=== PATIENT | female | born 1985 | race Caucasian/White ===

== ENCOUNTER 2017-11-03 20:05 | Outpatient (CLI) | payer MEDICARE, SELFPAY ==
[2017-11-03 20:37] VITALS: BMI 51.9
--- NOTE | 2017-11-04 09:15 | OB.TRI.NOTE ---
History of Present Illness Reason For Visit: pelvic pain in Gestational age: 25 Home Medications Medication Instructions Recorded Egeugnvi27/Iron Fum/FA/Om3/Dha 1 tablet PO DAILY 07/01/17 Budesonide/Formoterol Fumarate 6 gm IH PRN PRN 09/09/17 [Symbicort 160-4.5 Mcg Inhaler] Tamiflu 1 tab PO DAILY 11/03/17 Allergies No Known Allergies Allergy (Verified 10/10/17 20:45) NST - FHR Rate Baby A Baseline: 150 Impression/Plan Pelvic pain in
== END 2017-11-03 21:10 | disposition home or self-care (01) ==
LOC: WPOUT 20:32 → WP 20:34
PROVIDERS: Visit Provider Obstetrics & Gynecology
DX: O26.892 Other specified pregnancy related conditions, second trimester (principal); R10.2 Pelvic and perineal pain; Z3A.25 25 weeks gestation of pregnancy
CPT/HCPCS: 59050; 99218; G0378

== ENCOUNTER 2017-11-17 11:52 | Emergency (ER) | payer MEDICARE, SELFPAY ==
[2017-11-17 11:53] VITALS: BP 133/74; PULSE 114; RESP 16; TEMP 36.4; O2SAT 98; BMI 51.3
--- NOTE | 2017-11-17 12:12 | ED.VISSUMM ---
- ER Visit Summary Date of Service: 11/17/17 Chief Complaint: Cough and nausea History of Present Illness: The patient is a 32 F approximately 26 weeks due on February 16. Patient is Ab2. States for 2 weeks she has had a cough and intermittent nausea. Initially was treated with Tamiflu for influenza and Zofran for nausea. Currently is on Zofran and amoxicillin treated by an urgent care physician. She states she still has a cough. Denies any hemoptysis. Denies any chest pain. Denies any shortness of breath. Physical Examination: Well-appearing young female. Vital signs are stable. She is afebrile. Her pulse ox is 90% on room air no signs of hypoxia. No distress. HEENT exam unremarkable. Moist mucous membranes. No trouble swallowing or breathing. No stridor or drooling. Neck she has tender lymph nodes on the right side of her neck. Trachea midline. Lungs clear to auscultation bilaterally. No rales rhonchi or wheezing. Very mild cough. Heart regular rhythm no murmur. Rate about 100. Abdomen is morbidly obese but soft. No peritoneal signs. Normal bowel sounds. She is moving all 4 extremities. Calves are nontender. There is no edema or cords. Neurologically she is awake and alert with no focal deficits. Back exam is nontender. Test Results: None Emergency Department Course and Treatment: Discharge home treat as a viral syndrome. Treated symptomatically with Zofran for nausea. Follow-up with her HAIR STYLIST as needed. Treatment Plan: She does not need a testing at this time. Disposition: Discharge Impression: Acute viral syndrome with cough. Nausea at 26 weeks. This note was generated with [employer] dictation software. It may contain incorrect words, spelling, and punctuation that were not noted in review of the chart prior to signing ED Disposition - Plan for ED Patient: Chief Complaint: Cough Referrals: Care Physician,No Primary [Primary Care Provider] -
--- NOTE | 2017-11-17 12:16 | ED.DCSUM_ITS ---
- ER Visit Summary Date of Service: 11/17/17 Chief Complaint: Cough and nausea History of Present Illness: The patient is a 32 F approximately 26 weeks due on February 16. Patient is Ab2. States for 2 weeks she has had a cough and intermittent nausea. Initially was treated with Tamiflu for influenza and Zofran for nausea. Currently is on Zofran and amoxicillin treated by an urgent care physician. She states she still has a cough. Denies any hemoptysis. Denies any chest pain. Denies any shortness of breath. Physical Examination: Well-appearing young female. Vital signs are stable. She is afebrile. Her pulse ox is 90% on room air no signs of hypoxia. No distress. HEENT exam unremarkable. Moist mucous membranes. No trouble swallowing or breathing. No stridor or drooling. Neck she has tender lymph nodes on the right side of her neck. Trachea midline. Lungs clear to auscultation bilaterally. No rales rhonchi or wheezing. Very mild cough. Heart regular rhythm no murmur. Rate about 100. Abdomen is morbidly obese but soft. No peritoneal signs. Normal bowel sounds. She is moving all 4 extremities. Calves are nontender. There is no edema or cords. Neurologically she is awake and alert with no focal deficits. Back exam is nontender. Test Results: None Emergency Department Course and Treatment: Discharge home treat as a viral syndrome. Treated symptomatically with Zofran for nausea. Follow-up with her CREATIVE SERVICES INTERN as needed. Treatment Plan: She does not need a testing at this time. Disposition: Discharge Impression: Acute viral syndrome with cough. Nausea at 26 weeks. This note was generated with [employer] dictation software. It may contain incorrect words, spelling, and punctuation that were not noted in review of the chart prior to signing ED Disposition - Plan for ED Patient: Chief Complaint: Cough Referrals: Care Physician,No Primary [Primary Care Provider] -
--- NOTE | 2017-11-17 12:17 | DCINST.ED_ITS ---
ED Disposition - Plan for ED Patient: Disposition: Home or Assisted Living Chief Complaint: Cough Instructions: ED URI Viral Referrals: Ivory Pimentel [STAFF PHYSICIAN] - As Needed Additional Instructions: Fluids and rest. Finish her current antibiotic prescription even though this is most likely a virus. Zofran as needed for nausea. Follow-up with your PATIENT ACCOUNTS SPECIALIST as needed.
== END 2017-11-17 13:08 | disposition home or self-care (01) ==
PROVIDERS: Emergency Provider Emergency Medicine
DX: O98.512 Other viral diseases complicating pregnancy, second trimester (principal); J06.9 Acute upper respiratory infection, unspecified; R11.0 Nausea; Z3A.26 26 weeks gestation of pregnancy
CPT/HCPCS: 99282

== ENCOUNTER 2017-12-06 14:20 | Outpatient (CLI) | payer MEDICARE, SELFPAY ==
[2017-12-06 14:34] VITALS: BMI 51.2
[2017-12-06] MEDS: Lactated Ringers 500 ML 999 ML IV (15:00)
--- NOTE | 2017-12-06 15:05 | VDLE_ITS ---
Reason For Study: LEG SWELLING Procedure LEFT Exam performed portable in patient room. GSV is normal. A preliminary report was called and/or faxed CFV is compressible, spontaneous, phasic, to WP. competent, and demonstrates normal augmentation. FV is compressible, spontaneous, phasic, competent and demonstrates normal augmentation. POP V is compressible, spontaneous, phasic, competent and demonstrates normal augmentation. T/P Trunk is compressible. PTV is compressible. LT PerV is compressible. Interpretation Summary Deep veins of the left lower extremity are patent and compressible segmentally. There is no evidence of left lower extremity deep vein thrombosis. Valvular competence appears intact within the proximal deep venous system on the left . The left greater saphenous vein appears patent and compressible segmentally. Ordering Physician: Carisa Hayden Referring Physician: Carisa Hayden Performed By: Pilar Alvares RVT
[2017-12-06] MEDS: Ondansetron 4 MG/2 ML Vial IV (15:45)
[2017-12-06 15:48] LABS: Bacteria 0 SEEN /hpf (None Seen); Mucous, Urine 0 SEEN /hpf (<or=2+); White Blood Cells 0 SEEN /hpf (0-5)
[2017-12-06 16:00] LABS: Color, Urine Yellow (Yellow); Glucose, Dipstick Normal (Normal); Hematocrit 36.5 % (37-47); Hemoglobin 12.3 g/dl (12.0-15.0); Ketone-Dipstick 15 mg/dl (Negative); Leukocyte Esterase-Dipstick 25 /ul (Negative); Mean Corp Hgb Conc 33.7 g/gl (32-36); Mean Corpuscular Hgb 28.1 pg (27.0-32.0); Mean Corpuscular Volume 83.5 fL (81-99); Mean Platelet Vol. 10.3 fl (6.2-12.0); Nitrite-Dipstick Positive (Negative); Occult Blood-Urine 10 /ul (Negative); Platelet Count 291 K/mm3 (150-450); Protein-Dipstick 30 mg/dl (Negative); RBC Distribution Width CV 14.3 % (11.6-14.6); RBC Distribution Width SD 43.5 fl (35.1-43.9); Red Blood Count 4.37 M/mm3 (4.2-5.4); Specific Gravity, Urine 1.025 (1.002-1.030); Urine Bilirubin Dipstick Negative (Negative); Urine Clarity Sl. Cloudy (Clear); Urine Urobilinogen Normal (Normal); White Blood Count 8.9 K/mm3 (4.4-11.0)
[2017-12-06 16:16] LABS: ALB/GLOB Ratio 0.5 RATIO (0.9-2.4); AST(SGOT) 19 U/L (15-37); Alanine Aminotransfer ALT/SGPT 14 U/L (13-56); Albumin, Serum 2.5 g/dL (3.2-5.0); Alkaline Phosphatase 104 U/L (45-117); Amylase 105 U/L (25-115); Anion Gap 10 (5-15); BUN 9 mg/dL (7-18); BUN/Creat Ratio 16.6 RATIO (10-20); Calcium,Total 9.1 mg/dL (8.5-10.1); Chloride 108 mmol/L (98-107); Creatinine, Serum 0.54 mg/dL (0.55-1.02); EST Glomerular Filtration Rate 138 mL/min (>60); Est Glom Filt Rate - Afr Amer 167 mL/min (>60); Estimated Creatinine Clearance 123.72 ml/min; Globulin 4.6 g/dL (2.2-4.2); Glucose 88 mg/dL (74-106); Lipase 87 U/L (73-393); Potassium 3.8 mmol/L (3.5-5.1); Protein, Total 7.1 g/dL (6.4-8.2); Scan Indicated on CBC? Y/N NO; Sodium Level 141 mmol/L (136-145)
[2017-12-06 16:19] LABS: Squamous Epithelial Cells - UA 10-25 SEEN /hpf (5-10)
[2017-12-06 16:20] LABS: Red Blood Cells-Urine 0-5 SEEN /hpf (0-5)
[2017-12-06 16:25] LABS: Fibrinogen 586 mg/dl (203-444); Partial Thromboplast Time 29.2 Seconds (24.1-36.2); Prothrombin Time (Protime)PT. 13.5 SECONDS (11.7-14.9)
[2017-12-06 16:26] LABS: Protein, Urine (Random) 23.2 mg/dL (<11.9); Protein:Creat Ratio 80 mg/g CRE (0-200)
--- NOTE | 2017-12-06 18:00 | OB.TRI.NOTE ---
History of Present Illness Date of Service: 12/06/17 Was patient seen by the physician?: Yes Reason For Visit: ABD PAIN Date of Service: 12/06/17 Final BETY: 02/16/18 Final BETY Source: US <20 weeks Gestational age: 29 Weeks and 5 Days History of Present Illness: 32-year-old Flor[place]ma 6 para 2031 with EDC of 02/16/2018 presents at 29+ gestational weeks complaining of acute onset abdominal pain. She states it started about roughly after lunch. She got nauseous, sweaty, and just had sharp pain across her lower back and wrapping around the right lower quadrant of her abdomen. She denies any vaginal bleeding or leaking of fluid. She has had good movement. She denies any fevers or chills. 2 episodes of diarrhea earlier today. She had 1 large emesis in our office before she was sent over here. View of systems: General, denies any fevers, chills, or fatigue. Respiratory: She denies any shortness of breath, cough Cardiac: She denies any chest pain or palpitations : She denies any abnormal vaginal discharge, itching or burning. She denies any dysuria or hematuria Home Medications Medication Instructions Recorded Zmjhzjlb16/Iron Fum/FA/Om3/Dha 1 tablet PO DAILY 07/01/17 Budesonide/Formoterol Fumarate 6 gm IH PRN PRN 09/09/17 [Symbicort 160-4.5 Mcg Inhaler] Tamiflu 1 tab PO DAILY 11/03/17 ProMETHAzine [Phenergan] 12.5 mg PO Q6H PRN PRN #10 tab 12/06/17 Allergies No Known Allergies Allergy (Verified 10/10/17 20:45) - Pertinent Past Medical History Pertinent Past Medical History: Symmetrical history is significant for 2 previous sections She is morbidly obese with BMI of 51 Has a history of gallstones, asthma and seizure disorder in childhood Sickle history significant for , ankle surgery and cholecystectomy Physical Exam General: Alert, Cooperative, No apparent distress, - - Does appear uncomfortable Cardiovascular: Regular rate Lungs: Clear to auscultation Abdomen: Soft, Non-Distended, Tender - Mildly, - - No rebound or guarding, nondistended Estimated gestational size: Large for gestational age Presentation: Unable to assess Cervix Dilation (cm): 0 Station: -3 Effacement (%): 0 NST - FHR Rate Baby A Baseline: 140 bpm Variability:: Moderate Accelerations:: 15 x 15 Decelerations:: Variable - small NST Reactive:: Appropriate for gestational age FHR Category:: Category I Uterine Activity:: quiet Impression/Plan 32-year-old 6 para 2 AB 3 female at 29+ gestational weeks with abdominal pain. He has had no further emesis since admission. She would like something to drink. She is afebrile, normal white blood cell count, and no rebound or guarding. Suspicion for appendicitis is low at this point. Urinalysis was negative for blood so suspicion of kidney stone is very low as well. No evidence of obstetrical issue. Suspect viral gastroenteritis versus food poisoning. Recommend push fluids. She was given a liter of IV fluids and some Phenergan and was feeling much better and did not require any pain medications. She is to follow-up as scheduled in the office or as needed for fever or worsening of symptoms. She is comfortable with this plan and was given a prescription for Phenergan.
== END 2017-12-06 17:10 | disposition home or self-care (01) ==
LOC: WPOUT 14:26 → WP 14:28
PROVIDERS: Visit Provider Obstetrics & Gynecology
DX: O26.93 Pregnancy related conditions, unspecified, third trimester (principal); R10.31 Right lower quadrant pain; R11.0 Nausea; M54.5 Low back pain; O36.63X0 Maternal care for excessive fetal growth, third trimester, not applicable or unspecified; O99.213 Obesity complicating pregnancy, third trimester; E66.01 Morbid (severe) obesity due to excess calories; Z68.43 Body mass index [BMI] 50.0-59.9, adult; Z3A.29 29 weeks gestation of pregnancy; M79.89 Other specified soft tissue disorders; Z79.899 Other long term (current) drug therapy
CPT/HCPCS: 96361 ×2; 96374; 59025; 59050; 80053; 81001; 82150; 82570; 83690; 84156; 85027; 85384; 85610; 85730; 86850; 86900; 93971; 99218; J7120; G0378; J2405

== ENCOUNTER 2017-12-12 11:00 | Outpatient (RCR) | payer MEDICARE, SELFPAY | END 2017-12-31 23:59 | LOC: DC 11:00 | PROVIDERS: Visit Provider Advanced Practice Midwife | DX: O24.410 Gestational diabetes mellitus in pregnancy, diet controlled (principal); Z71.3 Dietary counseling and surveillance | CPT/HCPCS: 97802; G0108 ==

== ENCOUNTER 2018-01-05 23:25 | Outpatient (CLI) | payer MEDICARE, SELFPAY ==
[2018-01-06 00:20] VITALS: BMI 51.0
[2018-01-06 00:22] LABS: Red Blood Cells-Urine 0 SEEN /hpf (0-5)
[2018-01-06 00:38] LABS: Color, Urine Yellow (Yellow); Glucose, Dipstick Normal (Normal); Ketone-Dipstick Negative (Negative); Leukocyte Esterase-Dipstick 500 /ul (Negative); Nitrite-Dipstick Negative (Negative); Occult Blood-Urine 25 /ul (Negative); Protein-Dipstick 30 mg/dl (Negative); Urine Bilirubin Dipstick Negative (Negative); Urine Clarity Turbid (Clear); Urine Urobilinogen Normal (Normal)
[2018-01-06 00:45] LABS: Bacteria 2+ /hpf (None Seen); Mucous, Urine 1+ /hpf (<or=2+); Squamous Epithelial Cells - UA 10-25 SEEN /hpf (5-10)
[2018-01-06 00:46] LABS: White Blood Cells 50-100 SEEN /hpf (0-5)
--- NOTE | 2018-01-06 09:01 | OB.TRI.NOTE ---
History of Present Illness Date of Service: 01/06/18 Was patient seen by the physician?: No Reason For Visit: R/O LABOR Date of Service: 01/06/18 Final BETY: 02/16/18 Final BETY Source: US <20 weeks Gestational age: 34 Weeks and 1 Days Home Medications Medication Instructions Recorded [id number]/Iron Fum/FA/Om3/Dha 1 tablet PO DAILY 07/01/17 Budesonide/Formoterol Fumarate 6 gm IH PRN PRN 09/09/17 [Symbicort 160-4.5 Mcg Inhaler] Humulin N 16 unit SQ DAILY 01/06/18 Novolog Flexpen 4 - 6 units SQ BID 01/06/18 Allergies No Known Allergies Allergy (Verified 01/06/18 00:20) NST - FHR Rate Baby A Baseline: 140 Variability:: Moderate Accelerations:: 15 x 15 Decelerations:: None NST Reactive:: Yes FHR Category:: Category I Uterine Activity:: irritability Impression/Plan 32 YOF multigravida high risk patient c/o abdominal pain. Urinalysis contaminated. No fever. Not in labor. NST reactive. No evidence of obstetrical issue. D/maria m home to f/u in office prn or as scheduled.
--- NOTE | 2018-01-06 09:06 | OB.TRI.HP_ITS ---
History of Present Illness Date of Service: 01/06/18 Was patient seen by the physician?: No Reason For Visit: R/O LABOR Date of Service: 01/06/18 Final BETY: 02/16/18 Final BETY Source: US <20 weeks Gestational age: 34 Weeks and 1 Days Home Medications Medication Instructions Recorded Yjpkyxra87/Iron Fum/FA/Om3/Dha 1 tablet PO DAILY 07/01/17 Budesonide/Formoterol Fumarate 6 gm IH PRN PRN 09/09/17 [Symbicort 160-4.5 Mcg Inhaler] Humulin N 16 unit SQ DAILY 01/06/18 Novolog Flexpen 4 - 6 units SQ BID 01/06/18 Allergies No Known Allergies Allergy (Verified 01/06/18 00:20) NST - FHR Rate Baby A Baseline: 140 Variability:: Moderate Accelerations:: 15 x 15 Decelerations:: None NST Reactive:: Yes FHR Category:: Category I Uterine Activity:: irritability Impression/Plan 32 YOF multigravida high risk patient c/o abdominal pain. Urinalysis contaminated. No fever. Not in labor. NST reactive. No evidence of obstetrical issue. D/maria m home to f/u in office prn or as scheduled.
== END 2018-01-06 01:55 | disposition home or self-care (01) ==
LOC: WPOUT 01-06 00:03 → WP 01-06 00:05
PROVIDERS: Visit Provider Obstetrics & Gynecology
DX: O09.93 Supervision of high risk pregnancy, unspecified, third trimester (principal); R10.9 Unspecified abdominal pain; Z3A.34 34 weeks gestation of pregnancy
CPT/HCPCS: 59025; 59050; 81001; 99218; G0378

== ENCOUNTER 2018-01-06 13:19 | Outpatient (CLI) | payer MEDICARE, SELFPAY ==
[2018-01-06 13:33] VITALS: BMI 51.0
[2018-01-06 14:56] LABS: Bedside Glucose 97 mg/dL (70-110)
[2018-01-06] MEDS: Nalbuphine 10 MG/ML Ampul SC (15:32)
--- NOTE | 2018-01-11 05:16 | OB.TRI.NOTE ---
History of Present Illness Date of Service: 01/06/18 Reason For Visit: R/O LABOR Date of Service: 01/06/18 Final BETY: 02/16/18 Gestational age: 34 Weeks and 6 Days History of Present Illness: 32 yo at 34w presents with contractions and abdominal pain. no cervical change and no vaginal bleeding. she is wanting to transfer care to my office to be seen for delivery. Home Medications Medication Instructions Recorded Vkmhmvdp71/Iron Fum/FA/Om3/Dha 1 tab PO DAILY 07/01/17 Budesonide/Formoterol Fumarate 6 gm IH PRN PRN 09/09/17 [Symbicort 160-4.5 Mcg Inhaler] Humulin N 16 unit SQ BID 01/06/18 Novolog Flexpen 4 - 6 units SQ BID 01/06/18 Allergies No Known Allergies Allergy (Verified 01/10/18 11:14) - Pertinent Past Medical History Pertinent Past Medical History: Past Medical History (Last Reviewed 01/10/18 @ 11:15 by Yajaira Ford) Asthma (Acute) Gestational diabetes (Acute) Past Surgical History (Last Updated 01/10/18 @ 11:17 by Yajaira Ford) delivery delivered (Acute) Hx of cholecystectomy (Acute) ROS: general: negative GI: see hpi Physical Exam General: Alert, Oriented x3 Cardiovascular: Regular rate Lungs: Normal air movement Abdomen: Soft, Non Tender, Gravid NST - FHR Rate Baby A Baseline: 140 Variability:: Moderate Accelerations:: 15 x 15 Decelerations:: None NST Reactive:: Yes FHR Category:: Category I Uterine Activity:: no regular Impression/Plan threatened PTL previous cs x 2 reassuring FHT no cervical dilation, nubain given and patient dc to home
== END 2018-01-06 17:17 | disposition home or self-care (01) ==
LOC: OBS 13:25 → WP 13:26
PROVIDERS: Visit Provider Obstetrics & Gynecology
DX: O47.03 False labor before 37 completed weeks of gestation, third trimester (principal); O24.414 Gestational diabetes mellitus in pregnancy, insulin controlled; O34.219 Maternal care for unspecified type scar from previous cesarean delivery; J45.909 Unspecified asthma, uncomplicated; Z90.49 Acquired absence of other specified parts of digestive tract; Z3A.34 34 weeks gestation of pregnancy
CPT/HCPCS: 59025; 59050; 82962; 96372; 99218; G0378

== ENCOUNTER 2018-01-11 17:18 | Outpatient (CLI) | payer MEDICARE, SELFPAY ==
[2018-01-11 17:25] VITALS: BMI 50.9
[2018-01-11 18:16] LABS: Hematocrit 36.2 % (37-47); Hemoglobin 11.9 g/dl (12.0-15.0); Mean Corp Hgb Conc 32.9 g/gl (32-36); Mean Corpuscular Volume 82.1 fL (81-99); Mean Platelet Vol. 9.8 fl (6.2-12.0); Platelet Count 297 K/mm3 (150-450); RBC Distribution Width CV 13.8 % (11.6-14.6); RBC Distribution Width SD 41.8 fl (35.1-43.9); Red Blood Count 4.41 M/mm3 (4.2-5.4); White Blood Count 8.8 K/mm3 (4.4-11.0)
[2018-01-11 18:17] LABS: Scan Indicated on CBC? Y/N NO
[2018-01-11 18:22] LABS: Prothrombin Time (Protime)PT. 13.1 SECONDS (11.7-14.9)
[2018-01-11 18:27] LABS: Partial Thromboplast Time 27.8 Seconds (24.1-36.2)
[2018-01-11 18:32] LABS: AST(SGOT) 10 U/L (15-37); Alanine Aminotransfer ALT/SGPT 13 U/L (13-56); Creatinine, Serum 0.43 mg/dL (0.55-1.02); EST Glomerular Filtration Rate 180 mL/min (>60); Est Glom Filt Rate - Afr Amer 217 mL/min (>60); Estimated Creatinine Clearance 155.37 ml/min
[2018-01-11 18:52] LABS: Protein, Urine (Random) 41.4 mg/dL (<11.9); Protein:Creat Ratio 209 mg/g CRE (0-200)
[2018-01-11] MEDS: Ondansetron ODT 4 MG Tablet PO (19:12)
[2018-01-11] MEDS: Acetaminophen 325 MG Tablet PO (19:12)
--- NOTE | 2018-01-12 02:41 | OB.TRI.NOTE ---
History of Present Illness Date of Service: 01/11/18 Was patient seen by the physician?: Yes Reason For Visit: [facility] Date of Service: 01/11/18 Final BETY: 02/16/18 Gestational age: 35 Weeks and 0 Days History of Present Illness: 32 yo @ 34w6d presents with signfiicant headache and lower pevlic pain. denies any vb lof admits good fm co some spots in her vision with it also. normal bps nothing elevated and took tylenol at noon today, some nausea Home Medications Medication Instructions Recorded [id number]/Iron Fum/FA/Om3/Dha 1 tab PO DAILY 07/01/17 Budesonide/Formoterol Fumarate 6 gm IH PRN PRN 09/09/17 [Symbicort 160-4.5 Mcg Inhaler] Humulin N 16 unit SQ BID 01/06/18 Novolog Flexpen 4 - 6 units SQ BID 01/06/18 Allergies No Known Allergies Allergy (Verified 01/10/18 11:14) - Pertinent Past Medical History Pertinent Past Medical History: Past Medical History (Last Reviewed 01/10/18 @ 11:15 by Yajaira Ford) Asthma (Acute) Gestational diabetes (Acute) Past Surgical History (Last Updated 01/10/18 @ 11:17 by Yajaira Ford) delivery delivered (Acute) Hx of cholecystectomy (Acute) Mom's Labs & Results 01/11/18 01/11/18 01/11/18 17:35 17:50 17:50 WBC 8.8 RBC 4.41 Hgb 11.9 L Hct 36.2 L MCV 82.1 MCH 27.0 MCHC 32.9 RDW 13.8 RDW Differential 41.8 Plt Count 297 MPV 9.8 PT 13.1 INR 1.0 APTT 27.8 Creatinine Estim Creat Clear Calc Est GFR (MDRD) Af Amer Est GFR (MDRD) Non-Af Uric Acid AST ALT U Random Total Protein 41.4 H Urine Creatinine 198.00 Protein/Creatinin Ratio 209 H 01/11/18 17:50 WBC RBC Hgb Hct MCV MCH MCHC RDW RDW Differential Plt Count MPV PT INR APTT Creatinine 0.43 L Estim Creat Clear Calc 155.37 Est GFR (MDRD) Af Amer 217 Est GFR (MDRD) Non-Af 180 Uric Acid 4.0 AST 10 L ALT 13 U Random Total Protein Urine Creatinine Protein/Creatinin Ratio Social History Smoking Status Former smoker Physical Exam General: Alert Cardiovascular: Regular rate Lungs: Normal air movement Abdomen: Soft, Gravid, Tender Estimated gestational size: Appropriate for gestational size Cervix Dilation (cm): 0 NST - FHR Rate Baby A Baseline: 135-140 Variability:: Moderate Accelerations:: 15 x 15 Decelerations:: None NST Reactive:: Yes FHR Category:: Category I Uterine Activity:: irregular Impression/Plan 32 yo @ 34w6d presents with headache and pelvic pain in , threatened PTL no cervical dilation, reassuring FHT, normal bps and normal preeclampsia panel, negative for signfiicant fproteinuria dc home
--- NOTE | 2018-01-12 02:44 | OB.TRI.HP_ITS ---
History of Present Illness Date of Service: 01/11/18 Was patient seen by the physician?: Yes Reason For Visit: [facility] Date of Service: 01/11/18 Final BETY: 02/16/18 Gestational age: 35 Weeks and 0 Days History of Present Illness: 32 yo @ 34w6d presents with signfiicant headache and lower pevlic pain. denies any vb lof admits good fm co some spots in her vision with it also. normal bps nothing elevated and took tylenol at noon today, some nausea Home Medications Medication Instructions Recorded [id number]/Iron Fum/FA/Om3/Dha 1 tab PO DAILY 07/01/17 Budesonide/Formoterol Fumarate 6 gm IH PRN PRN 09/09/17 [Symbicort 160-4.5 Mcg Inhaler] Humulin N 16 unit SQ BID 01/06/18 Novolog Flexpen 4 - 6 units SQ BID 01/06/18 Allergies No Known Allergies Allergy (Verified 01/10/18 11:14) - Pertinent Past Medical History Pertinent Past Medical History: Past Medical History (Last Reviewed 01/10/18 @ 11:15 by Yajaira Ford) Asthma (Acute) Gestational diabetes (Acute) Past Surgical History (Last Updated 01/10/18 @ 11:17 by Yajaira Ford) delivery delivered (Acute) Hx of cholecystectomy (Acute) Mom's Labs & Results 01/11/18 01/11/18 01/11/18 17:35 17:50 17:50 WBC 8.8 RBC 4.41 Hgb 11.9 L Hct 36.2 L MCV 82.1 MCH 27.0 MCHC 32.9 RDW 13.8 RDW Differential 41.8 Plt Count 297 MPV 9.8 PT 13.1 INR 1.0 APTT 27.8 Creatinine Estim Creat Clear Calc Est GFR (MDRD) Af Amer Est GFR (MDRD) Non-Af Uric Acid AST ALT U Random Total Protein 41.4 H Urine Creatinine 198.00 Protein/Creatinin Ratio 209 H 01/11/18 17:50 WBC RBC Hgb Hct MCV MCH MCHC RDW RDW Differential Plt Count MPV PT INR APTT Creatinine 0.43 L Estim Creat Clear Calc 155.37 Est GFR (MDRD) Af Amer 217 Est GFR (MDRD) Non-Af 180 Uric Acid 4.0 AST 10 L ALT 13 U Random Total Protein Urine Creatinine Protein/Creatinin Ratio Social History Smoking Status Former smoker Physical Exam General: Alert Cardiovascular: Regular rate Lungs: Normal air movement Abdomen: Soft, Gravid, Tender Estimated gestational size: Appropriate for gestational size Cervix Dilation (cm): 0 NST - FHR Rate Baby A Baseline: 135-140 Variability:: Moderate Accelerations:: 15 x 15 Decelerations:: None NST Reactive:: Yes FHR Category:: Category I Uterine Activity:: irregular Impression/Plan 32 yo @ 34w6d presents with headache and pelvic pain in , threatened PTL no cervical dilation, reassuring FHT, normal bps and normal preeclampsia panel, negative for signfiicant fproteinuria dc home
== END 2018-01-11 19:20 | disposition home or self-care (01) ==
LOC: WPOUT 17:22 → WP 17:23
PROVIDERS: Visit Provider Obstetrics & Gynecology
DX: O47.03 False labor before 37 completed weeks of gestation, third trimester (principal); O34.219 Maternal care for unspecified type scar from previous cesarean delivery; O24.414 Gestational diabetes mellitus in pregnancy, insulin controlled; R51 Headache; R10.2 Pelvic and perineal pain; J45.909 Unspecified asthma, uncomplicated; Z90.49 Acquired absence of other specified parts of digestive tract; Z87.891 Personal history of nicotine dependence; Z3A.34 34 weeks gestation of pregnancy
CPT/HCPCS: 36415; 59025; 59050; 82565; 82570; 84156; 84450; 84460; 84550; 85027; 85610; 85730; 99218; G0378

== ENCOUNTER → 2018-01-17 09:10 | Outpatient (CLI) | payer MEDICARE, SELFPAY ==
--- NOTE | 2018-01-17 09:11 | US_ITS ---
STUDY: SECOND AND THIRD TRIMESTER OBSTETRICAL ULTRASOUND - LIMITED REASON FOR EXAM: Female, 32 years old. Growth. LMP: May 11, 2017. PRIOR ULTRASOUND: July 01, 2017. TECHNIQUE: Transabdominal ultrasound evaluation was performed. FINDINGS: There is a single intrauterine fetus. The fetus is in a cephalic presentation. There is demonstrated cardiac activity with a heart rate of 142 bpm. There is a normal amniotic fluid volume. The largest amniotic fluid pocket measures 4.68 cm. The amniotic fluid index (JEF) is 10.98 cm. The placenta is anterior in location and is not low lying. There are Grade 2 placental changes. The cervix is obscured. BIOMETRY: BPD: 9.01 cm: 36 weeks, 4 days HC: 33.06 cm: 37 weeks, 5 days AC: 31.75 cm: 35 weeks, 5 days FL: 6.78 cm: 34 weeks, 6 days Age by LMP: 35 weeks, 6 days. BETY by LMP: February 15, 2018. age by prior US: 35 weeks, 4 days. BETY by prior US: February 17, 2018. age by current US: 36 weeks, 2 days. BETY by current US: February 12, 2018. Estimated weight: 2759 grams, +/- 403 grams, 51 percentile. US/OB Limited With Biometrics IMPRESSION: 1. Live single intrauterine at 36 weeks, 2 days. BETY is February 12, 2018. There is been adequate interval growth since the prior ultrasound. 2. EFW of 2759 g. 3. JEF of 10.98 cm. 4. Anterior grade 2 placenta. 5. Vertex presentation. Electronically Signed: Keenan Easton DO at 17:37 EDT Tel [phone], Service support ,
== END ==
PROVIDERS: Visit Provider Obstetrics & Gynecology
DX: O09.93 Supervision of high risk pregnancy, unspecified, third trimester (principal)
CPT/HCPCS: 76816

== ENCOUNTER → 2018-01-24 16:52 | Outpatient (CLI) | payer MEDICARE, SELFPAY ==
[2018-01-24 18:16] LABS: Group B Strep DNA By PCR Negative (Negative); Internal Control PASS; Probe Check PASS; Specimen Processing Control PASS
== END ==
PROVIDERS: Visit Provider Obstetrics & Gynecology
DX: O09.93 Supervision of high risk pregnancy, unspecified, third trimester (principal); Z3A.00 Weeks of gestation of pregnancy not specified
CPT/HCPCS: 87081; 87653

== ENCOUNTER 2018-01-27 01:40 | Outpatient (CLI) | payer MEDICARE, SELFPAY ==
--- NOTE | 2018-01-27 02:43 | OB.TRI.NOTE ---
History of Present Illness Date of Service: 01/27/18 Was patient seen by the physician?: Yes Reason For Visit: R/O LABOR Date of Service: 01/27/18 Final BETY: 02/16/18 Gestational age: 37 Weeks and 1 Days History of Present Illness: 32 yo @ 37w1d presents with n/v yesterday and constant central low back pain, decreased movement. she denies any dysuria and denies any vb or lof, no regular ctx Home Medications Medication Instructions Recorded Zjnayibs23/Iron Fum/FA/Om3/Dha 1 tab PO DAILY 07/01/17 Budesonide/Formoterol Fumarate 6 gm IH PRN PRN 09/09/17 [Symbicort 160-4.5 Mcg Inhaler] Humulin N 16 unit SQ BID 01/06/18 Novolog Flexpen 4 - 6 units SQ BID 01/06/18 nystatin 100,000 unit/gram topical 1 applic TOPICAL BID #45 ea 01/18/18 powder Allergies No Known Allergies Allergy (Verified 01/24/18 11:33) - Pertinent Past Medical History Pertinent Past Medical History: Past Medical History (Last Reviewed 01/24/18 @ 11:33 by Yajaira Ford) Asthma (Acute) Gestational diabetes (Acute) Past Surgical History (Last Reviewed 01/24/18 @ 11:33 by Yajaira Ford) delivery delivered (Acute) Hx of cholecystectomy (Acute) ROS: General: negative Utility Worker: see hpi GI: otherwise negative unless documented in hpi Physical Exam General: Alert Cardiovascular: Regular rate Lungs: Normal air movement Abdomen: Soft, Non Tender, Gravid Estimated gestational size: Appropriate for gestational size Cervix Dilation (cm): 0 NST - FHR Rate Baby A Baseline: 130 Variability:: Moderate Accelerations:: 15 x 15 Decelerations:: None NST Reactive:: Yes FHR Category:: Category I Uterine Activity:: no regular Impression/Plan 32 yo 37w1d with n/v recommend IVFs and check cbc urine culture, give anti emetics. reactive nst category i tracing dc home after ivfs
--- NOTE | 2018-01-27 02:47 | OB.TRI.HP_ITS ---
History of Present Illness Date of Service: 01/27/18 Was patient seen by the physician?: Yes Reason For Visit: R/O LABOR Date of Service: 01/27/18 Final BETY: 02/16/18 Gestational age: 37 Weeks and 1 Days History of Present Illness: 32 yo @ 37w1d presents with n/v yesterday and constant central low back pain, decreased movement. she denies any dysuria and denies any vb or lof , no regular ctx Home Medications Medication Instructions Recorded Wiqkqixf25/Iron Fum/FA/Om3/Dha 1 tab PO DAILY 07/01/17 Budesonide/Formoterol Fumarate 6 gm IH PRN PRN 09/09/17 [Symbicort 160-4.5 Mcg Inhaler] Humulin N 16 unit SQ BID 01/06/18 Novolog Flexpen 4 - 6 units SQ BID 01/06/18 nystatin 100,000 unit/gram topical 1 applic TOPICAL BID #45 ea 01/18/18 powder Allergies No Known Allergies Allergy (Verified 01/24/18 11:33) - Pertinent Past Medical History Pertinent Past Medical History: Past Medical History (Last Reviewed 01/24/18 @ 11:33 by Yajaira Ford) Asthma (Acute) Gestational diabetes (Acute) Past Surgical History (Last Reviewed 01/24/18 @ 11:33 by Yajaira Ford) delivery delivered (Acute) Hx of cholecystectomy (Acute) ROS: General: negative Cutter 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 reactive nst category i tracing dc home after ivfs
[2018-01-27 02:51] VITALS: BMI 50.1
[2018-01-27 02:53] LABS: Mucous, Urine 0 SEEN /hpf (<or=2+); Red Blood Cells-Urine 0 SEEN /hpf (0-5)
[2018-01-27 02:54] LABS: Color, Urine Yellow (Yellow); Glucose, Dipstick Normal (Normal); Ketone-Dipstick 5 mg/dl (Negative); Leukocyte Esterase-Dipstick 100 /ul (Negative); Nitrite-Dipstick Negative (Negative); Occult Blood-Urine 10 /ul (Negative); Protein-Dipstick 30 mg/dl (Negative); Specific Gravity, Urine 1.025 (1.002-1.030); Urine Bilirubin Dipstick Negative (Negative); Urine Clarity Cloudy (Clear); Urine Urobilinogen Normal (Normal)
[2018-01-27 03:00] LABS: Absolute Lymphocyte Count 1.71 X10^3/ul (0.83-4.51); Basophil# 0.02 X10^3/uL; Basophil% 0.2 % (0-1); Eosinophil# 0.09 X10^3/uL; Hematocrit 36.3 % (37-47); Hemoglobin 11.8 g/dl (12.0-15.0); Lymphocyte # 1.71 X10^3/ul (4.0); Lymphocyte % 18.1 % (19-41); Mean Corp Hgb Conc 32.5 g/gl (32-36); Mean Corpuscular Hgb 26.5 pg (27.0-32.0); Mean Corpuscular Volume 81.4 fL (81-99); Mean Platelet Vol. 10.1 fl (6.2-12.0); Monocyte# 0.62 X10^3/uL; Monocyte% 6.5 % (0-10); Neutrophil # 7.02 X10^3/uL (2.7-7.7); Neutrophil % 74.1 % (47-70); Platelet Count 272 K/mm3 (150-450); RBC Distribution Width SD 41.5 fl (35.1-43.9); Red Blood Count 4.46 M/mm3 (4.2-5.4); White Blood Count 9.5 K/mm3 (4.4-11.0)
[2018-01-27 03:02] LABS: Bacteria 1+ /hpf (None Seen); POSITIVE COUNT NO; POSITIVE DIFFERENTIAL NO; POSITIVE MORPHOLOGY NO; Squamous Epithelial Cells - UA 25-50 SEEN /hpf (5-10); White Blood Cells 0-5 SEEN /hpf (0-5)
[2018-01-27] MEDS: proMETHazine 25 MG/ML Syringe 12.5 MG IV (03:25)
== END 2018-01-27 07:40 | disposition home or self-care (01) ==
LOC: WPOUT 02:06 → WP 02:07
PROVIDERS: Visit Provider Obstetrics & Gynecology
DX: O21.9 Vomiting of pregnancy, unspecified (principal); O36.8130 Decreased fetal movements, third trimester, not applicable or unspecified; O34.219 Maternal care for unspecified type scar from previous cesarean delivery; O24.419 Gestational diabetes mellitus in pregnancy, unspecified control; O26.93 Pregnancy related conditions, unspecified, third trimester; M54.5 Low back pain; Z79.4 Long term (current) use of insulin; Z79.899 Other long term (current) drug therapy; Z90.49 Acquired absence of other specified parts of digestive tract; Z3A.37 37 weeks gestation of pregnancy
CPT/HCPCS: 96374; 59025; 59050; 81001; 85025; 87086; 87088; 99218; G0378

== ENCOUNTER 2018-01-31 09:55 | Outpatient (CLI) | payer MEDICARE, SELFPAY ==
[2018-01-31 10:34] VITALS: BMI 51.2
--- NOTE | 2018-01-31 11:37 | US_ITS ---
STUDY: SECOND AND THIRD TRIMESTER OBSTETRICAL ULTRASOUND - LIMITED REASON FOR EXAM: Female, 32 years old. viability. JEF LMP: May 12, 2017 PRIOR ULTRASOUND: None. TECHNIQUE: Transabdominal ultrasound evaluation was performed. FINDINGS: There is a single intrauterine fetus. The fetus is in a cephalic presentation. There is demonstrated cardiac activity with a heart rate of 143 bpm. There is a normal amniotic fluid volume. The largest amniotic fluid pocket measures 5.2 cm. The amniotic fluid index (JEF) is 13.3 cm. The placenta is anterior in location and is not low lying. There are Grade 0 placental changes. The cervix measures 4.1 cm in length. BIOMETRY: BPD: 9.4: 38 weeks, 3 days HC: 33.2: 38 weeks, 1 days AC: 33.4: 37 weeks, 3 days FL: 7.3: 37 weeks, 4 days Age by LMP: 37 weeks, 5 days. BETY by LMP: 02/16/2018. age by prior US: 38 weeks, 0 days. BETY by prior US: 02/14/2018. age by current US: 38 weeks, 2 days. BETY by current US: 02/12/2018. Estimated weight: 3257 grams, +/- 476 grams, 58 percentile. US/OB Limited (No Biometrics) IMPRESSION: age by current US: 38 weeks, 2 days. BETY by current US: 02/12/2018. The amniotic fluid index (JEF) is 13.3 cm. Electronically Signed: Marissa Dorsey MD at 13:52 EDT Tel , Service support ,
[2018-01-31 12:00] LABS: Bedside Glucose 83 mg/dL (70-110)
--- NOTE | 2018-02-01 06:19 | OB.TRI.NOTE ---
History of Present Illness Date of Service: 01/31/18 Was patient seen by the physician?: Yes Reason For Visit: NST Date of Service: 01/31/18 Final BETY: 02/16/18 Gestational age: 37 Weeks and 5 Days History of Present Illness: 32 yo morbidly obese female w/ h/o prior C section deliveries presents for NST after nurse in office unable to auscultate FHT. Dec movement. Denies any UCs. Home Medications Medication Instructions Recorded Fxnremcg10/Iron Fum/FA/Om3/Dha 1 tab PO DAILY 07/01/17 Budesonide/Formoterol Fumarate 6 gm IH PRN PRN 09/09/17 [Symbicort 160-4.5 Mcg Inhaler] Humulin N 22 unit SQ BID 01/06/18 Novolog Flexpen 10 units SQ BID 01/06/18 nystatin 100,000 unit/gram topical 1 applic TOPICAL BID #45 ea 01/18/18 powder Allergies No Known Allergies Allergy (Verified 01/31/18 09:47) NST - FHR Rate Baby A Baseline: 130-140 with accels to 150-160 variable Variability:: Moderate Accelerations:: 15 x 15 Decelerations:: Variable - SONO done then for JEF : 13 cm. AGA and VTX on sono. (see report) FHR Category:: Category I Uterine Activity:: no regular UCs. Impression/Plan 37 5/7 wk Reactive NST with variable decelerations SONO: JEF 13 Home. Call ofc for next appt and to sign consents prior to repeat C/S
--- NOTE | 2018-02-01 06:29 | OB.TRI.HP_ITS ---
History of Present Illness Date of Service: 01/31/18 Was patient seen by the physician?: Yes Reason For Visit: NST Date of Service: 01/31/18 Final BETY: 02/16/18 Gestational age: 37 Weeks and 5 Days History of Present Illness: 32 yo morbidly obese female w/ h/o prior C section deliveries presents for NST after nurse in office unable to auscultate FHT. Dec movement. Denies any UCs. Home Medications Medication Instructions Recorded Lticysae18/Iron Fum/FA/Om3/Dha 1 tab PO DAILY 07/01/17 Budesonide/Formoterol Fumarate 6 gm IH PRN PRN 09/09/17 [Symbicort 160-4.5 Mcg Inhaler] Humulin N 22 unit SQ BID 01/06/18 Novolog Flexpen 10 units SQ BID 01/06/18 nystatin 100,000 unit/gram topical 1 applic TOPICAL BID #45 ea 01/18/18 powder Allergies No Known Allergies Allergy (Verified 01/31/18 09:47) NST - FHR Rate Baby A Baseline: 130-140 with accels to 150-160 variable Variability:: Moderate Accelerations:: 15 x 15 Decelerations:: Variable - SONO done then for JEF : 13 cm. AGA and VTX on sono. (see report) FHR Category:: Category I Uterine Activity:: no regular UCs. Impression/Plan 37 5/7 wk Reactive NST with variable decelerations SONO: JEF 13 Home. Call ofc for next appt and to sign consents prior to repeat C/S
== END 2018-01-31 13:15 | disposition home or self-care (01) ==
LOC: WPOUT 10:08 → WP 10:10
PROVIDERS: Visit Provider Obstetrics & Gynecology
DX: O34.219 Maternal care for unspecified type scar from previous cesarean delivery (principal); O76 Abnormality in fetal heart rate and rhythm complicating labor and delivery; O99.213 Obesity complicating pregnancy, third trimester; E66.01 Morbid (severe) obesity due to excess calories; O36.8130 Decreased fetal movements, third trimester, not applicable or unspecified; Z79.4 Long term (current) use of insulin; Z79.899 Other long term (current) drug therapy; Z3A.37 37 weeks gestation of pregnancy
CPT/HCPCS: 59025; 76815; 82962; 99218; G0378

== ENCOUNTER → 2018-02-06 16:22 | Outpatient (CLI) | payer MEDICARE, SELFPAY ==
[2018-02-06 18:03] LABS: Protein, Urine (Random) 41.2 mg/dL (<11.9); Protein:Creat Ratio 179 mg/g CRE (0-200)
== END ==
PROVIDERS: Visit Provider Obstetrics & Gynecology
DX: R80.9 Proteinuria, unspecified (principal)
CPT/HCPCS: 82570; 84156

== ENCOUNTER 2018-02-09 04:50 | Inpatient (IN) | payer MEDICARE, SELFPAY ==
[2018-02-07 11:15] VITALS: BMI 50.9
[2018-02-07 12:25] LABS: Absolute Lymphocyte Count 1.65 X10^3/ul (0.83-4.51); Absolute Neutrophil Count 6.8 X10^3/uL (2.0-7.7); Basophil# 0.02 X10^3/uL; Basophil% 0.2 % (0-1); Eosinophil# 0.11 X10^3/uL; Eosinophils% 1.2 % (0-5); Hematocrit 37.6 % (37-47); Hemoglobin 12.3 g/dl (12.0-15.0); Lymphocyte # 1.65 X10^3/ul (4.0); Mean Corp Hgb Conc 32.7 g/gl (32-36); Mean Corpuscular Hgb 26.6 pg (27.0-32.0); Mean Corpuscular Volume 81.4 fL (81-99); Mean Platelet Vol. 10.3 fl (6.2-12.0); Monocyte# 0.62 X10^3/uL; Monocyte% 6.8 % (0-10); Neutrophil # 6.76 X10^3/uL (2.7-7.7); Neutrophil % 73.6 % (47-70); POSITIVE COUNT NO; POSITIVE DIFFERENTIAL NO; POSITIVE MORPHOLOGY NO; Platelet Count 281 K/mm3 (150-450); RBC Distribution Width CV 14.2 % (11.6-14.6); Red Blood Count 4.62 M/mm3 (4.2-5.4); White Blood Count 9.2 K/mm3 (4.4-11.0)
[2018-02-09] VITALS (21 sets, daily range): BP systolic 101–140; BP diastolic 54–85; PULSE 90–123; RESP 16–20; TEMP 36.2–37.2; O2SAT 94–99; BMI 50.9
--- NOTE | 2018-02-09 | FALS_PTH ---
PATIENT: MANNY ALEXANDER LOC: [facility] U#:[id number] AGE/SX: 32/F ROOM: WP004 RE02/09/[address]: Dr. Karon Wright MD : 1985 BED: 1 DIS: 02/11/2018 SPEC #: [id number] RECD: 02/09/18 12:20 STATUS: BETO KAUSHAL #: [id number] JOHNSON: 02/09/18 00:[address]: Karon Wright DEPT: SURGICAL PATHOLOGY RECD BY: Aleksey Nicholson ENTERED: 02/09/18 12:20 SP TYPE: FALL TUBES OTHR DR: Deedee Primary Care Phys Tissues: Fallopian tube Procedures: Surgery Specimen Level II HEADER OPERATION: Tubal ligation PRE-OP DIAGNOSIS: Desired sterilization TISSUE SUBMITTED: Fallopian tubes, suture in left tube MICROSCOPIC DIAGNOSIS Right and left fallopian tubes, bilateral salpingectomies: Two complete segments of fallopian tubes with no pathologic change. SJ:moises 02/10/18 MICROSCOPIC DESCRIPTION Slides are reviewed. GROSS DESCRIPTION Received is one container labeled with the patient's name and designated bilateral fallopian tubes, left with stitch. The specimen consists of two fallopian tubes with an average length of 3.5 cm and has a maximal diameter of 0.5 cm. No mass lesions are identified. [employer] Membership Sales Agent sections are submitted in two cassettes as follows: 1 ? right fallopian tube, 2 ? left fallopian tube. / AM:moises 02/09/18 TC:5 CPT: 32623 x2
[2018-02-09] MEDS: Lactated Ringers 1,000 ML 999 ML IV ×2 (05:45→17:41)
--- NOTE | 2018-02-09 06:15 | HP.PCM_ITS ---
- Problem List (1) Supervision of high risk in third trimester Status: Acute Comment: PRR GP2 BETY 02/16/18 boy angela colby Alli (2) Previous delivery affecting , antepartum Status: Acute Comment: x2, plans RLTCS and BTL title 19 signed 10/05/17 at [facility]- obtain form (3) BMI 50.0-59.9, adult Status: Acute (4) Insulin controlled gestational diabetes mellitus in third trimester Status: Acute Comment: 22U NPH am and hs, 10U novolog with dinner History and Physical Date of Admission: 02/09/18 Intake Vital Signs 02/06/18 Height 5 ft 3 in 02/06/18 Weight: 288 lb 6 oz 02/06/18 Body Mass Index (BMI) 51.0 02/06/18 Blood Pressure 130/80 Intake Visit Reasons: 38 WEEKS AND NST 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: No Is patient in pain?: Yes Pain scale (1-10): 5 Allergies No Known Allergies Allergy (Verified 02/06/18 10:10) Medications Ubgqbcsx87/Iron Fum/FA/Om3/Dha 1 tab PO DAILY 07/01/17 [History Confirmed ] Budesonide/Formoterol Fumarate [Symbicort 160-4.5 Mcg Inhaler] 6 gm IH PRN PRN 09/09/17 [History Confirmed 02/06/18] Humulin N 22 unit SQ BID 01/06/18 [History Confirmed 02/06/18] Novolog Flexpen 10 units SQ BID 01/06/18 [History Confirmed 02/06/18] nystatin 100,000 unit/gram topical powder 1 applic TOPICAL BID #45 ea 01/18/18 [ Rx Confirmed 02/06/18] cyclobenzaprine 10 mg tablet 10 mg PO TID PRN #14 tab 02/06/18 [Rx Confirmed 04/19] Last Menstral Period: 05/12/17 Zika: Zika virus screening: Negative : No PFSH PFSH Medical History Asthma (Acute) Gestational diabetes (Acute) Surgical History delivery delivered (Acute) Hx of cholecystectomy (Acute) Family History Unknown Diabetes Heart disease Myocardial infarction Social History Smoking Status: Former smoker alcohol intake: never substance use type: does not use caffeine: No what type of physical activity do you participate in: walking seatbelt use: always do you feel safe at home: Yes additional social history: Alli- Both are unemployed Pregancy History 6 Elective abortions Hx Para 2 Spontaneous abortions Hx # Term Pregnancies Ectopic pregnancies Hx # Pregnancies Multiple births # of living children Past Pregnancies Del. Date Name GA/Weeks Outcome Route Bth Weight Infant Gen Labor Lgth Anesthesia Del Locatn Provider FOB Unknown 2008 Slime live - full term Unknown 2014 Pia live - full term HPI 38 WEEKS AND NST: Details: MANNY ALEXANDER is a 32 year old who presents for routine OB visit. OB Visit BETY Calculator Estimated Delivery Date 02/16/18 Based on LMP (certain) 05/12/17 Current WG 38w 5d Number 1 Expected Delivery Route/Plan RLTCS Specific Issue/Plans flu vaccine given tdap given at [facility] Initial OB labs 09/01 H.8 Platelets: 285 Type and Screen: o neg RPR: neg Rubella: imm HepBsAg: neg HIV: neg GC/Chlamydia: neg Urine Culture: neg HepC: GCT: abnormal Rhogam given: yes Cystic fibrosis carrier screenin-16 week testing Sequential Screen: NIPT screenin-20 week Anatomy Ultrasound: 26-28 week labs Hg: Platelets: GCT: tDAP given: Type and Screen: Rhogam given: 3hrGCT: 36 week labs GBS: Initial Weight: Not Recorded Date EGA Weight BP Urine Prot Glucose FHR FuHt Pres Mov CTX Dilation Effaced St Visit Note Provider Comments 01/10/18 34w 5d 287 lb 4 oz 134/82 140 36 BS well controlled. [facility] insulin controlled diabetes well controlled. no vb lof good fm no regualr ctx. had some abdominal pain last week seen in triage cervix closed SM 01/17/18 35w 5d 288 lb 6 oz 132/89 Trace Negative 140 Cephalic Active occasional 0 BS fairly controlled- minor increase in insulin. no vb lof some pelvic pressure SM 01/24/18 36w 5d 288 lb 134/87 Trace Negative 140 37 Cephalic Active occasional 0 BS fairly well controlled, no vb lof good fm no regular ctx some pelvic pressure SM 01/31/18 37w 5d 289 lb 4 oz 126/84 Absent occasional Unable to get FM on NST. Confirmed FHT on US but no noted movement. Visit Notes Visit Date: 01/31/18 Unable to get FM on NST. Confirmed FHT on US but no noted movement. Halina Patel MATERIAL CONTROL SUPERVISOR-C on 01/31/18 Visit Date: 01/24/18 BS fairly well controlled, no vb lof good fm no regular ctx some pelvic pressure Karon Wright MD on 01/27/18 Visit Date: 01/17/18 BS fairly controlled- minor increase in insulin. no vb lof some pelvic pressure Karon Wright MD on 01/18/18 Visit Date: 01/10/18 BS well controlled. [facility] insulin controlled diabetes well controlled. no vb lof good fm no regualr ctx. had some abdominal pain last week seen in triage cervix closed Karon Wright MD on 01/12/18 Diagnostics Diagnostics Labs Hct 36.3 % (37-47) L 01/27/18 Hgb 11.8 g/dl (12.0-15.0) L 01/27/18 Obstetrics Ultrasound 01/31/18 Group B Strep DNA Negative (Negative) 01/24/18 Details: HIV: Urine Culture: Sequential Screen: NIPT Screen: ROS Const Denies fever(s) Card Reports system reviewed and no additional complaints, except as docu Resp Reports system reviewed and no additional complaints, except as docu GI Denies abdominal pain, Reports as per HPI Denies vaginal discharge, Denies abnormal vaginal bleeding, Reports as per HPI Musc Reports system reviewed and no additional complaints, except as docu Exam Const General: healthy appearing, comfortable, no acute distress HENTN Head: normal to inspection Nose: external nose normal Face and sinus: normal facial exam Neck Neck: normal visual inspection, full ROM, no lymphadenopathy Thyroid: thyroid normal Chest Chest palpation & inspection: normal inspection of the chest Resp Effort & Inspection: normal respiratory effort GI Inspection: normal to inspection Palpation: soft, nontender Office Procedures OB NST Non-Stress Test Indications for Monitoring: Positive diabetes Heart Rate Baseline: 140 Heart Rate Variability: moderate Movement: Present Heart Rate Accelerations: Present Decelerations: Absent Contractions: Absent Impression: Yes Reactive Non-Stress Test Category 1 Results [id number] Office Urine Glucose Negative Last Edit by Juany Gunter on 02/06/18 10:21 Office Urine Protein 1+ Last Edit by Juany Gunter on 02/06/18 10:21 Assessment & Plan Problems 1. Insulin controlled gestational diabetes mellitus in third trimester O24.414 22U NPH am and hs, 10U novolog with dinner 2. BMI 50.0-59.9, adult Z68.43 3. Previous delivery affecting , antepartum O34.219 x2, plans RLTCS and BTL title 19 signed 10/05/17 at [facility]- obtain form 4. Supervision of high risk in third trimester O09.93 PRR GP2 BETY 02/16/18 tez scott pia colby Alli 5. 38 weeks gestation of Z3A.38 Plan Orders placed: no insulin adjustment needed. plan RLTCS and BTL on . title 19 form signed at [facility] will obtain. increased urine protein but bp normal , will send protein cr ratio movement and labor precautions reviewed. ACOG trimester education reviewed and updated. see problem list details for updated plan management information. GA appropriate handout given. Orders Orders: POC Urinalysis 2 Dip (Clinic) 02/06/18 OB NST 02/06/18 O24.414 Protein+Creatinine Ratio,Urine 02/06/18 R80.9 Medications New: cyclobenzaprine 10 mg PO TID PRN muscle spasm Coding Level of Care Code Off vis,est,level 3 Diagnoses Insulin controlled gestational diabetes mellitus in third trimester O24.414 BMI 50.0-59.9, adult Z68.43 Previous delivery affecting , antepartum O34.219 Supervision of high risk in third trimester O09.93 38 weeks gestation of Z3A.38
[2018-02-09 06:25] LABS: Bedside Glucose 97 mg/dL (70-110)
[2018-02-09] MEDS: Albuterol 2.5 MG/3 ML VIAL.NEB. INHALATION (06:44)
[2018-02-09] MEDS: Lactated Ringers 1,000 ML 150 ML IV (06:47)
[2018-02-09] MEDS: Sodium Citrate/Citric Acid 30 ML UDC PO (06:59)
[2018-02-09] MEDS: Oxytocin 30 units/NS 500 ml 30 UNITS/500 ML IV.SOLN 167 UNITS IV (08:16)
[2018-02-09 10:12] LABS: Pathology Specimen OB SEE PATHOLOGY REPORT
[2018-02-09 10:31] LABS: Bedside Glucose 114 mg/dL (70-110)
--- NOTE | 2018-02-09 11:10 | NURSING ---
Large clot in pad with peripad saturated. Clot and pads weighing 953 gm. Pt. repositioned for clean pad and pericare per RN x 2. Lochia now small with fundus firm U/U. Will monitor. Report called to Brittany in Dr. Wright's office.
[2018-02-09] MEDS: Methylergonovine 0.2 MG/ML Ampul IM (11:24)
[2018-02-09] MEDS: Oxytocin 30 units/NS 500 ml 30 UNITS/500 ML IV.SOLN 334 UNITS IV (11:38)
[2018-02-09] MEDS: miSOPROStol 200 MCG Tablet 1000 MCG RECTAL (11:39)
[2018-02-09 11:54] LABS: Hematocrit 32.8 % (37-47); Hemoglobin 10.5 g/dl (12.0-15.0); Mean Corpuscular Volume 81.2 fL (81-99); Mean Platelet Vol. 10.1 fl (6.2-12.0); Platelet Count 262 K/mm3 (150-450); RBC Distribution Width CV 14.2 % (11.6-14.6); Red Blood Count 4.04 M/mm3 (4.2-5.4); White Blood Count 13.2 K/mm3 (4.4-11.0)
[2018-02-09 11:55] LABS: Scan Indicated on CBC? Y/N NO
--- NOTE | 2018-02-09 12:10 | NURSING ---
Dr. Wright in room with additional staff for post hemorrhage
--- NOTE | 2018-02-09 12:20 | NURSING ---
1120 Rn noting another clot with fundal check. FF u/u. Clot weighing 215 ml. Additional RN and charge nurse to room. 1124 Methergine 0.2 mg Im given right thigh per Jordi STEPHENSON. 1126 Dr. Wright called to come evaluate pt. bleeding. Pad change for [address] Wright and additional staff in room. VE per her for clot evacuation and pad changed for 160 ml. Pt alert and talking to staff. Support person to room. 1138 Pitocin init.at 334 ml/hr Iv per Lyla RN. 1139 Cytotec 1000 mcg given rectally per graciela RN. 1140 Pt. cont. to rufino. exam without difficulty. Staff giving emotional support and information to pt and . Pulse 129, resp 20. BP cuff off for IV start and lab draw. 1142 IV started to LAC per Jordi Stephenson. Labs drawn and sent. Rufino. well. Pad changed for 160 ml for total EBL [address] Wright out of room. BP 111/66, pulse 71, resp 20. 1150 Lochia mild with ff u/u. Transexamic acid init. to LAC per Lyla STEPHENSON. Vs 120/67, 114, 20 , pulse ox 98%. Pt. cont. alert and talking. 1155 116/74, 115, 20, 99%. 1205 Urimeter to [place]. Lochia remains small.
[2018-02-09] MEDS: 0.9% Saline Lock 10 ML Syringe IV (12:30)
--- NOTE | 2018-02-09 13:21 | PCM.OPRPT ---
Problem List (1) Supervision of high risk in third trimester Status: Acute Comment: PRR GP2 BETY 02/16/18 boy angela colby Alli (2) Previous delivery affecting , antepartum Status: Acute Comment: x2, plans RLTCS and BTL title 19 signed 10/05/17 at [facility]- obtain form (3) BMI 50.0-59.9, adult Status: Acute (4) Insulin controlled gestational diabetes mellitus in third trimester Status: Acute Comment: 22U NPH am and hs, 10U novolog with dinner Report of Operation Date of Procedure: 02/09/18 Pre-Operative Diagnosis: Previous ?2 desired sterilization Post-Operative Diagnosis: Same plus right of midline lower abdominal 4 cm abdominal wall hernia containing omentum Surgery/Procedure Performed:: Repeat vertical skin incision low transverse uterine incision section and bilateral tubal ligation Via [place] method Description of Surgical Findings:: Omental to anterior abdominal wall adhesions noted and a right 4 cm abdominal wall hernia to the right of midline noted containing approximately three quarters of a cup size of omentum. Normal ovaries and fallopian tubes bilaterally automotive buyer: Real Ronquillo Type of Anesthesia:: Spinal Special Medications: Margarita Specimen's removed: Male vertex presentation Drains: Ramos Estimated Blood Loss (mL): 700 Fluids Replaced: cryStyalloid Description of Procedure: 32-year-old at 39 weeks presents for repeat low transverse . Patient had a history of difficulty with her low transverse Pfannenstiel skin incision healing well and had requested using her vertical skin incision for this section and she has had chronic yeast of the skin of the lower abdominal wall that has been refractory to therapy therefore the decision for going back through the previous vertical scar was made. Spinal anesthesia was placed and patient was prepped and draped in normal sterile fashion the dorsal supine position with leftward tilt. Vertical skin incision was made with the scalpel and carried through the level of the fascia fascia was nicked in the midline and extended superiorly and inferiorly it was found that there was a right 4 cm omental containing hernia in the abdominal wall seen the omental to anterior abdominal wall adhesions were taken down with double clamped Saida's and cut and sutured with 0 vicryl. Low transverse uterine incision was made with the scalpel and the incision stretched clear fluid ruptured and the 's head delivered atraumatically followed by the anterior and posterior shoulders the rest the delivered was bulb suctioned at delivery delayed cord clamping was employed and then the cord was clamped and cut. Placenta was manually removed and the uterus was exteriorized cleared of all clots and debris and repaired in a single layer closure. Bilateral tubal ligation was performed via the [place] method elevating the mid interstitial portion of fallopian tube transecting the mesosalpinx and ligating with plain gut suture proximally and distally bilaterally and removing the commuting portion of the fallopian tube. Excellent hemostasis was noted. Uterus was returned to the maternal abdomen and the right side of the incision was noted to have some bleeding which was treated with a [id number]-[id number] suture of 0 Monocryl which still had some bleeding present and therefore using a 3-0 Vicryl multiple stitches were used to finally obtain hemostasis and Margarita was placed over the raw areas of the uterine incision. Again this was watched and checked and noted of excellent hemostasis. The contents of the hernia sac were removed the omentum and excellent hemostasis was seen. The hernia was noted to be just lateral to the fascial incision and therefore the area of the hernia was opened up and the edges were roughed up with scissors to improve healing and then this was incorporated into the fascial closure. The peritoneum and fascia closed in mass closure via the Smead Smith technique. Subcutaneous tissue was reapproximated with 3-0 Monocryl and skin closed with 3-0 Monocryl. Steri's and silver Mepilex dressing was applied Grafts/Implants Used: Ramos - Complications none
--- NOTE | 2018-02-09 13:30 | OP.PCM_ITS ---
Problem List (1) Supervision of high risk in third trimester Status: Acute Comment: PRR GP2 BETY 02/16/18 boy angela colby Alli (2) Previous delivery affecting , antepartum Status: Acute Comment: x2, plans RLTCS and BTL title 19 signed 10/05/17 at [facility]- obtain form (3) BMI 50.0-59.9, adult Status: Acute (4) Insulin controlled gestational diabetes mellitus in third trimester Status: Acute Comment: 22U NPH am and hs, 10U novolog with dinner Report of Operation Date of Procedure: 02/09/18 Pre-Operative Diagnosis: Previous ?2 desired sterilization Post-Operative Diagnosis: Same plus right of midline lower abdominal 4 cm abdominal wall hernia containing omentum Surgery/Procedure Performed:: Repeat vertical skin incision low transverse uterine incision section and bilateral tubal ligation Via [place] method Description of Surgical Findings:: Omental to anterior abdominal wall adhesions noted and a right 4 cm abdominal wall hernia to the right of midline noted containing approximately three quarters of a cup size of omentum. Normal ovaries and fallopian tubes bilaterally telephone lineworker: Real Ronquillo Type of Anesthesia:: Spinal Special Medications: Margarita Specimen's removed: Male vertex presentation Drains: Ramos Estimated Blood Loss (mL): 700 Fluids Replaced: cryStyalloid Description of Procedure: 32-year-old at 39 weeks presents for repeat low transverse . Patient had a history of difficulty with her low transverse Pfannenstiel skin incision healing well and had requested using her vertical skin incision for this section and she has had chronic yeast of the skin of the lower abdominal wall that has been refractory to therapy therefore the decision for going back through the previous vertical scar was made. Spinal anesthesia was placed and patient was prepped and draped in normal sterile fashion the dorsal supine position with leftward tilt. Vertical skin incision was made with the scalpel and carried through the level of the fascia fascia was nicked in the midline and extended superiorly and inferiorly it was found that there was a right 4 cm omental containing hernia in the abdominal wall seen the omental to anterior abdominal wall adhesions were taken down with double clamped Saida's and cut and sutured with 0 vicryl. Low transverse uterine incision was made with the scalpel and the incision stretched clear fluid ruptured and the ' s head delivered atraumatically followed by the anterior and posterior shoulders the rest the delivered was bulb suctioned at delivery delayed cord clamping was employed and then the cord was clamped and cut. Placenta was manually removed and the uterus was exteriorized cleared of all clots and debris and repaired in a single layer closure. Bilateral tubal ligation was performed via the [place] method elevating the mid interstitial portion of fallopian tube transecting the mesosalpinx and ligating with plain gut suture proximally and distally bilaterally and removing the commuting portion of the fallopian tube. Excellent hemostasis was noted. Uterus was returned to the maternal abdomen and the right side of the incision was noted to have some bleeding which was treated with a [id number] suture of 0 Monocryl which still had some bleeding present and therefore using a 3-0 Vicryl multiple stitches were used to finally obtain hemostasis and Margarita was placed over the raw areas of the uterine incision. Again this was watched and checked and noted of excellent hemostasis. The contents of the hernia sac were removed the omentum and excellent hemostasis was seen. The hernia was noted to be just lateral to the fascial incision and therefore the area of the hernia was opened up and the edges were roughed up with scissors to improve healing and then this was incorporated into the fascial closure. The peritoneum and fascia closed in mass closure via the Smead Smith technique. Subcutaneous tissue was reapproximated with 3-0 Monocryl and skin closed with 3-0 Monocryl. Steri's and silver Mepilex dressing was applied Grafts/Implants Used: Ramos - Complications none
--- NOTE | 2018-02-09 13:30 | PCM.PN.BLA ---
Progress Note Called to the patient's bedside due to delayed hemorrhage. at the time I arrived patient had lost 1000 cc of clot based on weights. Active bleeding was minimal but still several clots were present upon vaginal and uterine palpation. Ultrasound was used to evaluate the uterine lining and a 5 cm clot was seen. Using a curette and ring forcep this clot was dislodged from intrauterine and passed. Methergine, Pitocin, Cytotec, and tranexamic acid was given. Please see nursing notes for additional specifications on exact times when medications and interventions were employed. Patient remained hemodynamically stable throughout the procedure with mild tachycardia in the 110s low to normal blood pressures and stat CBC showed a hemoglobin of 10.5. She tolerated the procedure the bedside well due to the spinal still wearing off. Bimanual massage was employed. An additional 500 cc of clot was encountered throughout the evaluation and bleeding was minimal and stable. Ancef was ordered additionally to be given 6 hours after first initial preoperative dose. To need monitoring was employed and patient was stable. Assessment and plan: Delayed hemorrhage Treatment Methergine Pitocin and Cytotec tranexamic acid and bimanual massage and manual removal of blood clot intrauterine. Additional antibiotics will be given and close monitoring will be employed. Type and cross 2 units on standby.
[2018-02-09] MEDS: Ketorolac 30 MG/ML Syringe IV (17:36)
[2018-02-09] MEDS: Lactated Ringers 1,000 ML 100 ML IV ×2 (18:43→22:18)
[2018-02-10] VITALS (10 sets, daily range): BP systolic 111–119; BP diastolic 63–75; PULSE 101–117; RESP 16–24; TEMP 35.6–36.9; O2SAT 94–100
[2018-02-10 01:11] LABS: Hematocrit 24.8 % (37-47); Hemoglobin 8.1 g/dl (12.0-15.0); Mean Corp Hgb Conc 32.7 g/gl (32-36); Mean Corpuscular Hgb 26.6 pg (27.0-32.0); Mean Corpuscular Volume 81.3 fL (81-99); Mean Platelet Vol. 10.6 fl (6.2-12.0); Platelet Count 219 K/mm3 (150-450); RBC Distribution Width CV 14.1 % (11.6-14.6); RBC Distribution Width SD 39.9 fl (35.1-43.9); Red Blood Count 3.05 M/mm3 (4.2-5.4); White Blood Count 9.5 K/mm3 (4.4-11.0)
[2018-02-10 01:12] LABS: Scan Indicated on CBC? Y/N NO
[2018-02-10] MEDS: 0.9% Saline Lock 10 ML Syringe IV ×4 (01:15→20:01)
[2018-02-10] MEDS: Lactated Ringers 1,000 ML 100 ML IV (01:15)
[2018-02-10 01:25] LABS: Anion Gap 8 (5-15); BUN 10 mg/dL (7-18); BUN/Creat Ratio 23.2 RATIO (10-20); Chloride 109 mmol/L (98-107); Creatinine, Serum 0.43 mg/dL (0.55-1.02); EST Glomerular Filtration Rate 180 mL/min (>60); Est Glom Filt Rate - Afr Amer 218 mL/min (>60); Estimated Creatinine Clearance 155.37 ml/min; Glucose 95 mg/dL (74-106); Potassium 3.9 mmol/L (3.5-5.1); Sodium Level 138 mmol/L (136-145)
[2018-02-10] MEDS: guaiFENesin Dm 10 ML UDC PO (01:55)
[2018-02-10] MEDS: Ketorolac 30 MG/ML Syringe IV ×4 (01:57→20:01)
[2018-02-10 05:16] LABS: Bedside Glucose 101 mg/dL (70-110)
[2018-02-10] MEDS: Bisacodyl 10 MG Suppository RECTAL (08:08)
[2018-02-10] MEDS: Senna/Docusate Sodium 1 Tablet PO (08:08)
[2018-02-10] MEDS: oxyCODONE 5 MG Tablet PO ×2 (12:56→18:33)
--- NOTE | 2018-02-10 13:49 | PCM.PN.OB ---
Subjective: doing well bleeding minimal no CP SOB faituge - Physical Exam General: Alert, Oriented x3 Vital Signs Temp Pulse Resp BP Pulse Ox 96.1 F L 117 H 24 H 119/75 100 02/10/18 08:00 02/10/18 08:00 02/10/18 08:00 02/10/18 08:00 02/10/18 08:00 Oxygen Delivery Method Room Air Weight: 287 lb 9.6 oz Body Mass Index (BMI) 50.9 Intake and Output for Last 24 Hours 02/08/18 02/09/18 02/10/18 23:59 23:59 23:59 Intake Total 6138 / 6138 Output Total 2156 / 2156 825 / 825 Balance 3982 / 3982 -825 / -825 Laboratory Tests Past 24 Hrs 02/07/18 02/09/18 02/10/18 12:00 10:25 01:02 WBC 9.5 RBC 3.05 L Hgb 8.1 L Hct 24.8 L MCV 81.3 MCH 26.6 L MCHC 32.7 RDW 14.1 RDW Differential 39.9 Plt Count 219 MPV 10.6 Sodium Potassium Chloride Carbon Dioxide Anion Gap BUN Creatinine Estim Creat Clear Calc Est GFR (MDRD) Af Amer Est GFR (MDRD) Non-Af BUN/Creatinine Ratio Glucose Calcium Screen NEGATIVE Baby's Blood Type O POSITIVE Baby's CARMEN NEGATIVE Crossmatch See Detail 02/10/18 01:02 WBC RBC Hgb Hct MCV MCH MCHC RDW RDW Differential Plt Count MPV Sodium 138 Potassium 3.9 Chloride 109 H Carbon Dioxide 21.0 Anion Gap 8 BUN 10 Creatinine 0.43 L Estim Creat Clear Calc 155.37 Est GFR (MDRD) Af Amer 218 Est GFR (MDRD) Non-Af 180 BUN/Creatinine Ratio 23.2 H Glucose 95 Calcium 8.0 L Screen Baby's Blood Type Baby's CARMEN Crossmatch POC Glucose 02/10/18 05:13 POC Glucose 101 Medical Necessity - Tobacco Use Smoking Status: Never smoker Assessment/Plan s/p RLTCS BTL with PPH diong well anemia acute secondary to blood loss from delayed hemorrhage- recommend iron upon discharge routine postop care
--- NOTE | 2018-02-10 13:52 | DCINST_ITS ---
Discharge Diet: No Restrictions Discharge Activity: May Not Drive - for 2 weeks, May not drive while taking narcotic pain medications., May Shower, May Take a Tub Bath - in 7 days May resume sexual activity in: 4-6 weeks Lifting Restrictions: 20 pounds Additional Activity Instructions:: Nothing in the vagina for 4-6 weeks. You may return to work/school in 6 weeks. Call your doctor if your incision/area has: Continuous Slow Oozing, Sudden Increased Bleeding, Increased Pain/ Swelling, Increased Redness, Foul Smelling Discharge Call your doctor if you observe: Fever of 101 or Higher, Using more than one pad per hour - for 2 hours Suture Line Care: Avoid Pulling/Pushing, Avoid Pinching/Bending Cleanse incision/area with: Keep Dressing Clean & Dry Additional Instructions: If you experience any of the following, contact your healthcare provider. * Bleeding that soaks a pad every hour for 2 hours * Fever 100.4 or higher * Unrelieved incision or abdominal pain * Swelling, redness, discharge or bleeding from your incision or episiotomy site * Your incision begins to separate * Problems urinating (including inability to urinate or burning while urinating) . * Visual changes * Severe headache * Flu-like symptoms * Pain or redness in one of both of your breasts * Pain, warmth, tenderness or swelling in your legs, especially the calf area * Frequent nausea and vomiting * Symptoms of depression or anxiety If you experience any of the following, call 911 or go to the nearest Emergency Room. * Chest pain * Problems breathing * Seizure activity * Partial or complete paralysis of a body part, slurred speech, weakness or drooping of the face, or a sudden inability to walk or hold your balance Allergies/Adverse Reactions: Allergies No Known Allergies Allergy (Verified 02/09/18 05:27) Medications to take at Discharge [id number]/Iron Fum/FA/Om3/Dha 1 tab PO DAILY 07/01/17 Budesonide/Formoterol Fumarate [Symbicort 160-4.5 Mcg Inhaler] 6 gm IH PRN PRN 09/09/17 Humulin N 22 unit SQ BID 01/06/18 Novolog Flexpen 10 units SQ DINNER 01/06/18 cyclobenzaprine 10 mg tablet 10 mg PO TID PRN #14 tab 02/06/18 Dextromethorphan HBr [Tussin Cough] 10 ml PO PRN PRN 02/09/18 Nystatin [Nystop] 1 applic TOPICAL BID 02/09/18 Ferrous Sulfate [Slow Fe] 142 mg PO BID #60 tablet.er 02/10/18 Naproxen [Naprosyn] 250 - 500 mg PO Q8H PRN PRN #30 tab 02/10/18 Oxycodone HCl/Acetaminophen [Percocet 5-325] 2 tablet PO Q4H PRN PRN 7 Days #28 tablet 02/10/18 The following prescriptions were given: Oxycodone HCl/Acetaminophen [Percocet 5-325] 2 tablet PO Q4H PRN PRN 7 Days #28 tablet PRN Reason: Moderate-Severe pain Naproxen [Naprosyn] 250 - 500 mg PO Q8H PRN PRN #30 tab PRN Reason: MILD PAIN Ferrous Sulfate [Slow Fe] 142 mg PO BID #60 tablet.er Follow-Up: Call to make an appointment with your doctor for an incision check in 1-2 weeks. You will also need a 6 week post- follow up appointment. Please Follow Up With: Karon Wright MD - Call to make an appointment for an incision check in 1-2 [phone] When: You will need a post- check in 6 weeks. Primary Care Physician: Care Physician,No Primary [Primary Care Provider] -
[2018-02-10] MEDS: Albuterol 2.5 MG/3 ML VIAL.NEB. INHALATION ×3 (14:29→23:33)
[2018-02-10] MEDS: Hydrocortisone 2.5% Crm 1 APPLIC TOPICAL (18:37)
[2018-02-11 01:12] VITALS: BP 118/75; PULSE 116; RESP 18; TEMP 36.8; O2SAT 97
[2018-02-11] MEDS: 0.9% Saline Lock 10 ML Syringe IV ×2 (02:34→08:21)
[2018-02-11] MEDS: Ketorolac 30 MG/ML Syringe IV ×2 (02:34→08:21)
[2018-02-11] MEDS: Albuterol 2.5 MG/3 ML VIAL.NEB. INHALATION (06:58)
[2018-02-11 06:59] VITALS: PULSE 110; RESP 16; O2SAT 98
[2018-02-11 09:00] VITALS: BP 129/85; PULSE 119; RESP 18; TEMP 37.3
[2018-02-11] MEDS: oxyCODONE 5 MG Tablet PO (09:29)
--- NOTE | 2018-02-11 09:38 | PCM.PN.OB ---
Subjective: doing well no complaints - Physical Exam General: Alert Vital Signs Temp Pulse Resp BP Pulse Ox 98.2 F 110 H 16 118/75 98 02/11/18 01:12 02/11/18 06:59 02/11/18 06:59 02/11/18 01:12 02/11/18 06:59 Oxygen Delivery Method Room Air Weight: 287 lb 9.6 oz Body Mass Index (BMI) 50.9 Intake and Output for Last 24 Hours 02/09/18 02/10/18 02/11/18 23:59 23:59 23:59 Intake Total 6138 / 6138 Output Total 2156 / 2156 1025 / 1025 Balance 3982 / 3982 -1025 / -1025 Laboratory Tests Past 24 Hrs 02/07/18 12:00 Crossmatch See Detail Medical Necessity - Tobacco Use Smoking Status: Never smoker Assessment/Plan s/p RLTCS BTL with PPH diong well anemia acute secondary to blood loss from delayed hemorrhage- recommend iron upon discharge routine postop care
[2018-02-11 10:23] VITALS: BP 128/75; PULSE 114; RESP 18; TEMP 36.2
== END 2018-02-11 12:00 | disposition home or self-care (01) | DRG 765 ==
PROVIDERS: Admitting Provider Obstetrics & Gynecology; Visit Provider Obstetrics & Gynecology
PROC: 10D00Z1 Extraction of Products of Conception, Low, Open Approach (ICD-10-PCS; CPT 59514; principal; 2018-02-09 07:15)
DX: O34.211 Maternal care for low transverse scar from previous cesarean delivery (principal); O72.2 Delayed and secondary postpartum hemorrhage; D62 Acute posthemorrhagic anemia; O12.14 Gestational proteinuria, complicating childbirth; O24.424 Gestational diabetes mellitus in childbirth, insulin controlled; O99.62 Diseases of the digestive system complicating childbirth; K43.9 Ventral hernia without obstruction or gangrene; B37.2 Candidiasis of skin and nail; J45.909 Unspecified asthma, uncomplicated; K21.9 Gastro-esophageal reflux disease without esophagitis; Z79.4 Long term (current) use of insulin; Z30.2 Encounter for sterilization; Z87.891 Personal history of nicotine dependence; Z90.49 Acquired absence of other specified parts of digestive tract; Z3A.38 38 weeks gestation of pregnancy; Z37.0 Single live birth
CPT/HCPCS: 36415; 80048; 82570; 82962; 84156; 85025; 85027; 85461; 86850; 86900; 86920; 88302; 90384; 94640; 99218; J7120; A4216; G0378; J2405; J2790

== ENCOUNTER 2018-03-01 12:15 | Emergency (ER) | payer MEDICARE, SELFPAY ==
[2018-03-01 12:16] VITALS: BP 138/87; PULSE 99; RESP 14; TEMP 37.2; O2SAT 97; BMI 46.5
--- NOTE | 2018-03-01 12:38 | VDLE_ITS ---
Reason For Study: LEG PAIN Procedure LEFT Exam performed portable in ED. CFV is compressible, spontaneous, phasic, A preliminary report was called and/or faxed competent, and demonstrates normal to Dr. Pham. augmentation. FV is compressible, spontaneous, phasic, competent and demonstrates normal augmentation. POP V is compressible, spontaneous, phasic, competent and demonstrates normal augmentation. T/P Trunk is compressible. PTV is compressible. LT PerV is compressible. GSV is dilated and non-compressible from SFJ to ankle. Origin of thrombus is .5 cm distal to SFJ and does not extend into deep system. Interpretation Summary Deep veins of the left lower extremity are patent and compressible segmentally. There is no evidence of left lower extremity deep vein thrombosis. Valvular competence appears intact within the proximal deep venous system on the left . Acute superficial thrombophlebitis is noted in the left great saphenous vein, extending from 0.5 centimeters from the left sapheno-femoral junction to the left ankle. Ordering Physician: Whitney Pham Referring Physician: Brittany Leong Performed By: Pilar Alvares RVT
--- NOTE | 2018-03-01 14:02 | ED.VISSUMM ---
- ER Visit Summary Date of Service: 03/01/18 Chief Complaint: [Left leg swelling] History of Present Illness: The patient is a 32 F [presents the emergency department with swelling to her left leg that she states started approximately a week ago. Patient denies any injury. Patient states that she had a on February 09. Patient is not currently nursing her . She denies any chest pain or shortness of breath. Patient denies hemoptysis. Patient does not have a history of PE or DVT.] Physical Examination: [HEENT-PERRLA, EOMI. Cranial nerves II through XII grossly intact. TMs clear. Mucous membranes moist. No adenopathy. Cardiovascular-regular rate and rhythm without murmur or ectopy Lungs-clear to auscultation, chest wall stable without crepitus or subcu emphysema Abdomen-normoactive bowel sounds, soft, nontender, no rebound or rigidity, no peritoneal signs. Extremities-intact ?4, normal range of motion, normal pulses, atraumatic]. Left leg-patient has some mild tenderness over the medial distal thigh. No ropes or cords palpated. Patient has mild tenderness over the left calf and some faint erythema noted to the medial aspect of the calf. Neurovascular intact with normal station and Refill. Patient has normal femoral, popliteal, dorsal pedal, and her tibial pulses. Test Results: [Duplex of the left lower extremity obtained read by radiology as superficial thrombophlebitis of the greater saphenous vein near the deep system however it is 0.5 cm distal to the superficial femoral junction and does not extend into the deep system.] Emergency Department Course and Treatment: [Case was discussed with vascular surgeon Dr. Timmons who asked that patient be written for compression stockings and a repeat ultrasound in 1 week. At this point he did not want patient started on anticoagulation. Patient to follow-up with his office.] Treatment Plan: [Compression stockings. I will write patient for naproxen.] I advised patient use warm compresses. I advised patient to return if chest pain, shortness of breath, hemoptysis, or condition should worsen in any way. Disposition: [Discharged home in stable condition] Impression: [Superficial thrombophlebitis left leg] This note was generated with [employer] dictation software. It may contain incorrect words, spelling, and punctuation that were not noted in review of the chart prior to signing ED Disposition - Plan for ED Patient: Chief Complaint: Lower Extremity Injury Referrals: Care Physician,No Primary [Primary Care Provider] -
--- NOTE | 2018-03-01 14:06 | ED.DCSUM_ITS ---
- ER Visit Summary Date of Service: 03/01/18 Chief Complaint: [Left leg swelling] History of Present Illness: The patient is a 32 F [presents the emergency department with swelling to her left leg that she states started approximately a week ago. Patient denies any injury. Patient states that she had a C- section on February 09. Patient is not currently nursing her infant. She denies any chest pain or shortness of breath. Patient denies hemoptysis. Patient does not have a history of PE or DVT.] Physical Examination: [HEENT-PERRLA, EOMI. Cranial nerves II through XII grossly intact. TMs clear. Mucous membranes moist. No adenopathy. Cardiovascular-regular rate and rhythm without murmur or ectopy Lungs-clear to auscultation, chest wall stable without crepitus or subcu emphysema Abdomen-normoactive bowel sounds, soft, nontender, no rebound or rigidity, no peritoneal signs. Extremities-intact ?4, normal range of motion, normal pulses, atraumatic]. Left leg-patient has some mild tenderness over the medial distal thigh. No ropes or cords palpated. Patient has mild tenderness over the left calf and some faint erythema noted to the medial aspect of the calf. Neurovascular intact with normal station and Refill. Patient has normal femoral, popliteal, dorsal pedal, and her tibial pulses. Test Results: [Duplex of the left lower extremity obtained read by radiology as superficial thrombophlebitis of the greater saphenous vein near the deep system however it is 0.5 cm distal to the superficial femoral junction and does not extend into the deep system.] Emergency Department Course and Treatment: [Case was discussed with vascular surgeon Dr. Timmons who asked that patient be written for compression stockings and a repeat ultrasound in 1 week. At this point he did not want patient started on anticoagulation. Patient to follow-up with his office.] Treatment Plan: [Compression stockings. I will write patient for naproxen.] I advised patient use warm compresses. I advised patient to return if chest pain , shortness of breath, hemoptysis, or condition should worsen in any way. Disposition: [Discharged home in stable condition] Impression: [Superficial thrombophlebitis left leg] This note was generated with [employer] dictation software. It may contain incorrect words, spelling, and punctuation that were not noted in review of the chart prior to signing ED Disposition - Plan for ED Patient: Chief Complaint: Lower Extremity Injury Referrals: Care Physician,No Primary [Primary Care Provider] -
--- NOTE | 2018-03-01 14:06 | ED.DEP ---
ED Disposition - Plan for ED Patient: Chief Complaint: Lower Extremity Injury Instructions: ED Phlebitis Superficial Prescriptions: Naproxen [Naprosyn] 500 mg PO BID PRN #20 tab Referrals: Care Physician,No Primary [Primary Care Provider] - Thomas Timmons MD [STAFF PHYSICIAN] - 10-14 Days if not better
== END 2018-03-01 14:21 | disposition home or self-care (01) ==
PROVIDERS: Emergency Provider Emergency Medicine
DX: I80.02 Phlebitis and thrombophlebitis of superficial vessels of left lower extremity (principal)
CPT/HCPCS: 93971; 99282

== ENCOUNTER → 2018-03-08 12:30 | Outpatient (CLI) | payer MEDICARE, SELFPAY ==
--- NOTE | 2018-03-08 11:06 | VDLE_ITS ---
Reason For Study: LLE swelling RIGHT LEFT CFV is compressible, spontaneous, phasic, CFV is compressible, spontaneous, phasic, competent and demonstrates normal competent, and demonstrates normal augmentation. augmentation. Procedure FV is compressible, spontaneous, phasic, Exam performed in department. competent and demonstrates normal The exam was diagnostic. augmentation. The study was technically difficult. POP V is compressible, spontaneous, phasic, A preliminary report was called and/or faxed competent and demonstrates normal to PT does not have a PCP. PT taken to ED augmentation. for treatment. T/P Trunk is compressible. GSV, PTV, PER V are dilated and noncompressible. Interpretation Summary Acute deep vein thrombosis is noted in the left posterior tibial vein. Acute deep vein thrombosis is noted in the left peroneal vein. The remainder of the left lower extremity deep venous system is patent and compressible. Valvular competence appears intact within the proximal deep venous system on the left . Acute superficial thrombophlebitis is noted in the left great saphenous vein. Ordering Physician: Whitney Pham Referring Physician: Whitney Pham Performed By: Xin Kim, CARLY, RVT
--- NOTE | 2018-03-08 12:30 | DT_ITS ---
This patient was seen during an EMR downtime March 06, 2018 - March 13, 2018. This patient may have a combination of paper and electronic documentation or all paper documentation. All documentation is viewable within the e-chart portion of [facility] for each patient visit.
== END ==
PROVIDERS: Visit Provider Emergency Medicine
DX: M79.89 Other specified soft tissue disorders (principal)
CPT/HCPCS: 93971

== ENCOUNTER 2018-03-08 13:49 | Emergency (ER) | payer MEDICARE, SELFPAY ==
--- NOTE | 2018-03-08 13:49 | DT_ITS ---
This patient was seen during an EMR downtime March 06, 2018 - March 13, 2018. This patient may have a combination of paper and electronic documentation or all paper documentation. All documentation is viewable within the e-chart portion of [facility] for each patient visit.
== END 2018-03-08 15:30 | disposition home or self-care (01) ==
LOC: ED 03-09 14:05
PROVIDERS: Emergency Provider Emergency Medicine
DX: I82.442 Acute embolism and thrombosis of left tibial vein (principal); I82.492 Acute embolism and thrombosis of other specified deep vein of left lower extremity; M79.89 Other specified soft tissue disorders
CPT/HCPCS: 96372; 99282

== ENCOUNTER 2018-03-12 17:25 | Emergency (ER) | payer MEDICARE, SELFPAY ==
--- NOTE | 2018-03-12 13:12 | EKG12_ITS ---
Test Reason : CP Blood Pressure : / mmHG Vent. Rate : 096 BPM Atrial Rate : 096 BPM P-R Int : 164 ms QRS Dur : 076 ms QT Int : 340 ms P-R-T Axes : 032 029 021 degrees QTc Int : 429 ms Normal sinus rhythm Normal ECG Confirmed by KHAI VANCE, YOSI ([id number]), supervising editor news reel MARCO TREJO ([id number]) on 03/15/2018 5:54:22 PM Referred By: Fay Chapa Confirmed By:YOSI RIDLEY MD
--- NOTE | 2018-03-12 17:25 | DT_ITS ---
This patient was seen during an EMR downtime March 06, 2018 - March 13, 2018. This patient may have a combination of paper and electronic documentation or all paper documentation. All documentation is viewable within the e-chart portion of [facility] for each patient visit.
--- NOTE | 2018-03-12 19:14 | CT_ITS ---
STUDY: CTA CHEST REASON FOR EXAM: Female, 32 years old. Shortness of breath. RADIATION DOSAGE (If Supplied By Facility): CTDIvol = ( 16.13 ) mGy, DLP = ( 665.47 ) mGycm TECHNIQUE: The examination was performed with the intravenous administration of 100ML ml of Isovue 370 contrast material. Post-processing of the angiographic images was performed, with multiplanar reformation and 3D reconstruction. Individualized dose optimization techniques were used for this CT. COMPARISON: None. FINDINGS: There is minimal dependent atelectasis within the lower lobes. There is a right middle lobe granuloma. Normal enhancement of the main pulmonary artery and right and left pulmonary arteries. There are filling defects within subsegmental pulmonary arteries within the lower lobes consistent with underlying pulmonary emboli. Normal thoracic aorta and visualized great vessels. There is no demonstrated aortic dissection. Normal heart and pericardium. Normal mediastinum. Normal hilar regions. Normal visualized trachea and bronchi. Normal chest wall structures. Normal osseous structures. The limited images of the upper abdomen demonstrate splenomegaly. CT/CTA Chest W/WO Contrast IMPRESSION: Pulmonary emboli within subsegmental pulmonary arteries within the lower lobes. Minimal bilateral dependent atelectasis. Splenomegaly. N.B. : The above information has been verbally conveyed by Stella Vasquez MD to Dr Chapa, Referring Physician, on 03/12/2018 20:26:43 (ET). Electronically Signed: Stella Vasquez MD at 20:27 EDT Tel , Service support , N.B. : The above information has been verbally conveyed by Stella Vasquez MD to Dr Chapa, Referring Physician, on 03/12/2018 20:26:43 (ET).
[2018-03-14 08:02] LABS: AST(SGOT) 23 U/L (15-37); BUN 6 mg/dL (7-18); BUN/Creat Ratio 8.5 RATIO (10-20); Calcium,Total 8.6 mg/dL (8.5-10.1); Creatinine, Serum 0.71 mg/dL (0.55-1.02); EST Glomerular Filtration Rate 101 mL/min (>60); Est Glom Filt Rate - Afr Amer 122 mL/min (>60); Glucose 83 mg/dL (74-106); Lipase 69 U/L (73-393)
[2018-03-14 08:03] LABS: Alanine Aminotransfer ALT/SGPT 20 U/L (13-56); Alkaline Phosphatase 133 U/L (45-117); Anion Gap 7 (5-15); Bilirubin, Direct 0.08 mg/dL (0.00-0.30); Chloride 106 mmol/L (98-107); Potassium 3.7 mmol/L (3.5-5.1); Pregnancy, Serum, hCG Quali. NEGATIVE Negative (0-9 Nonpreg); Sodium Level 140 mmol/L (136-145)
[2018-03-14 10:25] LABS: Absolute Lymphocyte Count 1.59 X10^3/ul (0.83-4.51); Absolute Neutrophil Count 1.8 X10^3/uL (2.0-7.7); Basophil# 0.09 X10^3/uL; Basophil% 2.2 % (0-1); Eosinophil# 0.14 X10^3/uL; Eosinophils% 3.4 % (0-5); Hematocrit 28.9 % (37-47); Hemoglobin 8.9 g/dl (12.0-15.0); Lymphocyte # 1.59 X10^3/ul (4.0); Lymphocyte % 38.8 % (19-41); Mean Corp Hgb Conc 30.8 g/gl (32-36); Mean Corpuscular Hgb 24.2 pg (27.0-32.0); Mean Corpuscular Volume 78.5 fL (81-99); Mean Platelet Vol. 10.3 fl (6.2-12.0); Neutrophil # 1.81 X10^3/uL (2.7-7.7); Neutrophil % 43.6 % (47-70); POSITIVE COUNT NO; POSITIVE DIFFERENTIAL NO; POSITIVE MORPHOLOGY NO; Platelet Count 220 K/mm3 (150-450); RBC Distribution Width CV 15.4 % (11.6-14.6); RBC Distribution Width SD 42.7 fl (35.1-43.9); Red Blood Count 3.68 M/mm3 (4.2-5.4); White Blood Count 4.2 K/mm3 (4.4-11.0)
[2018-03-14 10:26] LABS: International Normalized Ratio 1.1; Partial Thromboplast Time 32.3 Seconds (24.1-36.2); Prothrombin Time (Protime)PT. 14.2 SECONDS (11.7-14.9)
[2018-03-14 12:28] LABS: Color, Urine Yellow (Yellow); Glucose, Dipstick NEGATIVE (Normal); Ketone-Dipstick Negative (Negative); Leukocyte Esterase-Dipstick 500 /ul (Negative); Nitrite-Dipstick Negative (Negative); Occult Blood-Urine 250 /ul (Negative); Protein-Dipstick 30 mg/dl (Negative); Urine Bilirubin Dipstick Negative (Negative); Urine Clarity Cloudy (Clear); Urine Urobilinogen Normal (Normal)
[2018-03-14 12:29] LABS: Amorphous Sediment 1+; Bacteria 4+ /hpf (None Seen); Mucous, Urine 1+ /hpf (<or=2+); Red Blood Cells-Urine 5-10 SEEN /hpf (0-5); Squamous Epithelial Cells - UA 10-25 SEEN /hpf (5-10); White Blood Cells 25-50 SEEN /hpf (0-5)
== END 2018-03-12 21:00 | disposition home or self-care (01) ==
LOC: ED 03-13 08:36
PROVIDERS: Emergency Provider Emergency Medicine
DX: N30.90 Cystitis, unspecified without hematuria (principal); I26.99 Other pulmonary embolism without acute cor pulmonale; Z86.718 Personal history of other venous thrombosis and embolism; Z79.01 Long term (current) use of anticoagulants
CPT/HCPCS: 71275; 80048; 80076; 81001; 83690; 84703; 85025; 85610; 85730; 93005; 96374; 99284; Q9967; A4216; J2405

== ENCOUNTER 2018-03-15 14:00 | Emergency (ER) | payer MEDICARE, SELFPAY ==
[2018-03-15 14:00] VITALS: BP 136/98; PULSE 115; RESP 20; TEMP 38.5; O2SAT 99; BMI 47.6
--- NOTE | 2018-03-15 15:00 | ED.DCSUM_ITS ---
- ER Visit Summary Date of Service: 03/15/18 Chief Complaint: Nausea, vomiting and diarrhea. History of Present Illness: The patient is a 32 F past medical history of recent PE for which she is on Xarelto. Also currently being treated with Bactrim for UTI. Had a on 02/09/2018. States she was doing well for the last 3 days she has had nausea, vomiting and diarrhea since yesterday. Denies any melena no hematemesis. Denies dysuria. Physical Examination: Young female no acute distress. Vital signs temperature 101.5. Pulse is 9 9% room air no signs of hypoxia. She does not look septic or toxic. She does not look dehydrated. H EENT exam unremarkable moist membranes. No posterior pharyngeal erythema or exudate. Neck nontender no lymphadenopathy no meningismus. Lungs clear to auscultation bilaterally. No rales, rhonchi or wheezing. Heart tachycardic no murmur. Rate about 115. Abdomen is soft nondistended normal bowel sounds no peritoneal signs. She is moving all 4 extremities. They are neurovascularly intact. Neurologically she is awake and alert without focal motor deficits. Test Results: None Emergency Department Course and Treatment: Treated with p.o. Zofran and p.o. fluid challenge. Treatment Plan: Patient able to hold fluids down be discharged to home. Disposition: Discharge Impression: Acute nausea, vomiting and diarrhea secondary to viral syndrome History of recently diagnosed with DVT and PE on Xarelto Status post delivery 1 month ago. Currently being treated for UTI on Bactrim This note was generated with [employer] dictation software. It may contain incorrect words, spelling, and punctuation that were not noted in review of the chart prior to signing ED Disposition - Plan for ED Patient: Chief Complaint: Nausea/Vomiting Referrals: Care Physician,No Primary [Primary Care Provider] -
--- NOTE | 2018-03-15 15:00 | ED.DEP ---
ED Disposition - Plan for ED Patient: Disposition: Home or Assisted Living Chief Complaint: Nausea/Vomiting Instructions: ED Nausea Vomiting Prescriptions: Guaifenesin/Codeine [Robitussin AC] 5 ml PO Q6H PRN PRN #14 udc PRN Reason: Cough Ondansetron [Zofran Odt] 8 mg PO Q8H PRN PRN #7 PRN Reason: Nausea Referrals: Care Physician,No Primary [Primary Care Provider] - 3-5 Days if not improving Additional Instructions: Plenty of fluids and rest. Zofran as needed for nausea. Return if not getting better or unable to keep fluids down. Follow-up your primary care physician if not improving.
[2018-03-15] MEDS: Ondansetron 4 MG/2 ML Vial PO.IVFORM (15:26)
[2018-03-15 16:32] VITALS: BP 104/49; PULSE 107; RESP 16; O2SAT 98
== END 2018-03-15 16:33 | disposition home or self-care (01) ==
LOC: ED 15:18
PROVIDERS: Emergency Provider Emergency Medicine
DX: O99.63 Diseases of the digestive system complicating the puerperium (principal); A08.4 Viral intestinal infection, unspecified; O86.20 Urinary tract infection following delivery, unspecified; Z79.01 Long term (current) use of anticoagulants; Z79.899 Other long term (current) drug therapy; Z86.711 Personal history of pulmonary embolism; Z86.718 Personal history of other venous thrombosis and embolism
CPT/HCPCS: 99283; J2405

== ENCOUNTER 2019-03-05 22:17 | Emergency (ER) | payer MEDICARE, SELFPAY ==
[2018-11-28 13:36] VITALS: BMI 51.9
[2019-03-05 22:18] VITALS: BP 150/83; PULSE 115; RESP 15; TEMP 36.8; O2SAT 95; BMI 54.6
--- NOTE | 2019-03-05 22:40 | ED.DCSUM_ITS ---
- ER Visit Summary Date of Service: 03/05/19 Chief Complaint: Dental pain History of Present Illness: The patient is a 33 F who presents with dental pain. Pain is been present for about 3 days. She believes she chipped a tooth when her symptoms started. She describes her pain as throbbing. She has had t emporary relief with aspirin. She does report cold sensitivity. She has an appointment with a dentist next week. She is concerned that she may be developing abscess as she has a history of this. Physical Examination: Afebrile heart rate 115 vitals otherwise unremarkable Patient does have some tenderness on percussion of the left maxillary second molar there is no focal abscess amenable to incision and drainage No lymphadenopathy Clear speech, no trismus Heart regular rate and rhythm No respiratory distress Test Results: Not indicated Emergency Department Course and Treatment: Patient will be treated with naproxen and penicillin. She was advised to keep her dentistry appointment and was discharged. Treatment Plan: [] Disposition: Discharge Impression: Odontalgia This note was generated with [employer] dictation software. It may contain incorrect words, spelling, and punctuation that were not noted in review of the chart prior to signing ED Disposition - Plan for ED Patient: Referrals: Fátima Long MD [Primary Care Provider] -
--- NOTE | 2019-03-05 22:41 | ED.DEP ---
ED Disposition - Plan for ED Patient: Instructions: ED Tooth Pain Prescriptions: Naproxen [Naprosyn] 500 mg PO BID #20 tab Penicillin V Potassium 500 mg PO 4X/DAY #40 tab Referrals: Fátima Long MD [Primary Care Provider] -
== END 2019-03-05 22:45 | disposition home or self-care (01) ==
LOC: ED 22:37
PROVIDERS: Emergency Provider Emergency Medicine; Family Provider Internal Medicine; PCP Internal Medicine
DX: K08.89 Other specified disorders of teeth and supporting structures (principal)
CPT/HCPCS: 99282

== ENCOUNTER 2019-06-30 16:36 | Emergency (ER) | payer MEDICARE, SELFPAY ==
[2019-06-30 16:37] VITALS: BP 149/94; PULSE 98; RESP 18; TEMP 36.6; O2SAT 98; BMI 53.8
--- NOTE | 2019-06-30 17:21 | ED.VISSUMM ---
- ER Visit Summary Date of Service: 06/30/19 Chief Complaint: Eye irritation with mild swelling and crusting. Left worse than right History of Present Illness: The patient is a 33 F past medical history of diabetes, anemia and DVTs. Patient states that she does not wear glasses or contacts. She is never had eye surgery. Denies any recent trauma or chemical exposure. She does not well. She states the last 3 days she had irritation of both eyes. Watering. A little bit of crusting over. The right eye appears to be getting better the left is not improving. She denies any obvious exposure treatment with pinkeye. She denies any visual change or foreign body sensation. Physical Examination: Young female no acute distress vital signs stable afebrile. HEENT exam both eyes are injected. Pupils are unreactive light extra motions are intact. She has minimal swelling of the left upper and lower lid on the left side not so much on the right. Both eyes are watering. There is no orbital or periorbital cellulitis. No proptosis. No preauricular lymphadenopathy. No facial cellulitis. Lungs are clear heart regular rhythm abdomen soft nontender. Neurologically she is awake alert with no focal motor deficits. Slit-lamp examination was performed of the left eye. Tetracaine was instilled. She got quick relief. Fluorescein stain was placed. There was no foreign body. No corneal abrasion. And no ulcer. Exam is consistent with viral conjunctivitis. Test Results: None Emergency Department Course and Treatment: Bacitracin ophthalmic ointment to the left eye. And 3 times a day till gone. Treatment Plan: Bacitracin ophthalmic ointment to left eye. Warm compresses. Follow-up with ophthalmology if not improving. Disposition: Discharge Impression: Viral conjunctivitis bilaterally This note was generated with [employer] dictation software. It may contain incorrect words, spelling, and punctuation that were not noted in review of the chart prior to signing ED Disposition - Plan for ED Patient: Referrals: Fátima Long MD [Primary Care Provider] -
--- NOTE | 2019-06-30 17:24 | ED.DEP ---
ED Disposition - Plan for ED Patient: Disposition: Home or Assisted Living Instructions: CONJUNCTIVITIS, Viral Prescriptions: Bacitracin Opthalmic 1 applic LEFT EYE Q4 #1 opth.tube Prescription Printed Referrals: Albert Zamora MD [STAFF PHYSICIAN] - 3-5 Days if not improving Additional Instructions: Apply antibiotic ointment in the left eye small amount times each day till gone. Warm compresses in both eyes to decrease the crusting. Follow-up if not improving. This is a viral conjunctivitis and should improve over the next several days.
[2019-06-30 18:35] VITALS: PULSE 98; RESP 17; O2SAT 97
== END 2019-06-30 18:39 | disposition home or self-care (01) ==
LOC: ED 17:31
PROVIDERS: Emergency Provider Emergency Medicine; Family Provider Internal Medicine; PCP Internal Medicine
DX: B30.9 Viral conjunctivitis, unspecified (principal); E11.9 Type 2 diabetes mellitus without complications; D64.9 Anemia, unspecified; Z86.718 Personal history of other venous thrombosis and embolism
CPT/HCPCS: 99283